=== PATIENT | male | born 1960 | race Caucasian/White ===

== ENCOUNTER → 2024-04-03 | Outpatient (CLI) | payer MEDICARE, BC, SELFPAY ==
[2024-04-03 13:04] LABS: Collection Type, Urine Clean Catch; Squamous Epithelial Cell,Urine 0 /hpf (0-5)
[2024-04-03 13:16] LABS: Bilirubin,Urine Negative (Negative); Blood,Urine Negative (Negative); Clarity,Urine Clear (Clear/Hazy); Color,Urine Lt-Yellow (Lt Yel-Yel); Glucose, Urine Negative (Negative); Ketones,Urine Negative (Negative); Leukocyte Esterase,Urine Negative (Negative); Nitrite,Urine Negative (Negative); Protein,Urine Negative (Neg - Trace); RBC,Urine 1 /hpf (0-3); Specific Gravity,Urine 1.009 (1.001-1.035); Urobilinogen,Urine Negative mg/dL (0.0-1.0); WBC,Urine 1 /hpf (0-5)
[2024-04-03 13:19] LABS: Basophils # (Auto) 0.1 Thou/mm3 (0.0-0.2); Basophils % (Auto) 1 % (0-2.5); Eosinophils # (Auto) 0.3 Thou/mm3 (0.0-0.5); Eosinophils % (Auto) 5 % (0-10); Hematocrit 31.8 % (41.0-53.0); Hemoglobin 10.8 g/dL (13.5-16.0); Immature Granulocytes % (Auto) 0 % (0-0); Immature Granulocytes Auto 0.02 Thou/mm3 (0.00-0.00); Lymphocytes # (Auto) 1.9 Thou/mm3 (1.0-4.8); Lymphocytes % (Auto) 27 % (10-50); Mean Corpuscular Hemoglobin 29.3 pg (25.0-35.0); Mean Corpuscular Volume 86 fL (80-100); Monocytes # (Auto) 0.7 Thou/mm3 (0.0-0.8); Monocytes % (Auto) 10 % (0-12); Neutrophils # (Auto) 4.2 Thou/mm3 (1.8-7.7); Neutrophils % (Auto) 58 % (37-80); Nucleated Red Blood Cell % 0 /100 WBC (0); RDW Standard Deviation 49.8 fL (35.1-43.9); Red Blood Count 3.69 Miln/mm3 (4.50-5.90); White Blood Count 7.2 Thou/mm3 (3.8-10.6)
[2024-04-03 13:31] LABS: Parathyroid Hormone Intact 76.4 pg/ml (18.5-88.0)
[2024-04-03 13:35] LABS: Creatinine MALB Rnd Ur 68 mg/dL (30-125); Microalbumin, Random Urine < 3 mg/L (0-300)
[2024-04-03 13:36] LABS: Alanine Aminotransferase 12 U/L (10-49); Albumin, Serum 4.5 gm/dL (3.4-4.8); Albumin/Globulin Ratio 1.9 (1.2-2.2); Alkaline Phosphatase 87 U/L (46-116); Anion Gap 9 (7-16); Aspartate Amino Transferase 17 U/L (0-34); BUN/Creatinine Ratio 13 Ratio (12-20); Bilirubin,Total 0.7 mg/dL (0.3-1.2); Blood Urea Nitrogen 18 mg/dL (9-23); Calcium 9.1 mg/dL (8.3-10.6); Calcium (Corrected) 9.1 mg/dL (8.5-10.1); Carbon Dioxide 22.7 mMol/L (20.0-31.0); Chloride 104 mMol/L (98-107); Creatinine (Component) 1.4 mg/dL (0.6-1.3); Globulin 2.4 gm/dL (2.3-3.5); Glucose 116 mg/dL (74-106); Osmolality,Calculated 274 (275-295); Potassium 4.2 mMol/L (3.4-5.1); Sodium 136 mMol/L (136-145); Thyroid Stimulating Hormone 2.78 uIU/mL (0.55-4.78); Total Protein 6.9 gm/dL (5.7-8.2); eGFR 56 See Note
[2024-04-03 13:42] LABS: Platelet Count 69 Thou/mm3 (140-440)
[2024-04-03 13:45] LABS: Glucose Estimated Average 108 mg/dL (80-131); Hemoglobin A1C 5.4 % Hgb (4.8-6.0)
[2024-04-03 13:46] LABS: Slide Review Platelets confirmed
== END | disposition home or self-care (01) ==
LOC: COPL 11:42
PROVIDERS: PCP Internal Medicine; Referring Provider Internal Medicine Hematology & Oncology; Visit Provider Internal Medicine Hematology & Oncology
DX: I12.9 Hypertensive chronic kidney disease with stage 1 through stage 4 chronic kidney disease, or unspecified chronic kidney disease (principal); N18.30 Chronic kidney disease, stage 3 unspecified; C7A.8 Other malignant neuroendocrine tumors; D37.6 Neoplasm of uncertain behavior of liver, gallbladder and bile ducts
CPT/HCPCS: 36415; 80053; 81001; 82043; 82570; 83036; 83970; 84443; 85025

== ENCOUNTER 2024-04-06 10:37 | Outpatient (RCR) | payer MEDICARE, BC, SELFPAY ==
--- NOTE | 2024-04-07 05:51 | CTCFLWUP_ITS ---
Patient: ALEXIA HOLDEN : 1960 Page 7 of 7 FOLLOW UP NOTE DATE OF SERVICE: 04/06/2024 NAME: ALEXIA HOLDEN ACCOUNT: : 1960 AGE: 64 DIAGNOSIS: Well-differentiated neuroendocrine tumor, grade 1?2involving liver parenchyma. Most likel y pancreatic neuroendocrine tumor. Mr. Holden received first dose of lanreotide 120 mg subcu on 12/26/2023. Multiple liver tumors (03/15/2023) Mr. Holden had DOTA scan (09/05/2023) at [facility] which showed multiple hepatic lesions as well as lesion i n the pancreas and splenic lesions suspicious for diffuse disease. 5 HIAA?urine 4.6 (less than 6.0 mg per 24-hour urine) 09/24/2023 5 HIAA?urine 2.8 (less than 6.0 mg per 24-hour urine) 05/27/2023. Hypertension currently being managed by Dr. Larry Byrnes Dry cough most likely secondary to lisinopril. Pulmonary emboli (09/05/2023) on apixaban. Thrombocytopenia most likely secondary to ITP REASON FOR TODAY?S VISIT: This is office follow-up visit. Mr. Holden is here at [facility], [place] accompanied by his . Mr. Holden had first dose of lanreotide on 12/26/2023. F or 3 days he had significant abdominal pain as well as diarrhea. The symptoms were resolved after th at. He is clinically doing well today. He rhad MRI scans of the abdomen which showed progression wh en it was compared to the previous MRI scans done in February 2023. CT scan of the chest with contra st did not show any residual pulmonary emboli. Currently Mr. Holden is on Eliquis. Tolerating it marlen y well. HISTORY OF PRESENT ILLNESS: Mr. Holden is a 64-year-old male with the following oncology his tory. 02/06/2023: Mr. Holden had a renal and bladder ultrasound to evaluate the cause for renal insufficienc y. 02/11/2023: CT scan of the abdomen without IV contrast 03/15/2023: MRI of the abdomen with and without contrast? 04/16/2023: CT-guided biopsy of the right lobe liver lesion? 05/27/2023: 24-hour urine 5-HIAA level 07/25/2023: PET/CT scan at [facility] 07/04/2023: EGD done Mr. Holden also had colonoscopy done which did not reveal any significant abnormalities. 09/05/2023: Dotatate PET CT scan at [facility]? 11/27/2023: Dr. Samantha Odonnell of [facility] gastrointestinal medical oncology recommended Mr. Holden to be started on lanreotide in view of the bulky disease. 12/26/2023: Mr. Holden received first dose of lanreotide 120 mg subcu. 01/23/2024: MRI of the abdomen with and without contrast PAST MEDICAL HISTORY: HTN Leaking mitral valve Neuroendocrine tumor liver - dx 04/16/23 ARF PAST SURGICAL HISTORY: Back surgery - 2000 - Detached left retina - 2 yrs ago Bilateral cataract surgery MEDICATIONS: 1. apixaban - 5 mg 1 tab one tab po twice a day 2. labetalol - 100 mg 1 tab Twice a Day 3. niCARdipine - 20 mg 1 Capsule Daily 4. TylenoL - 500 mg 1 tab Three times a day Medications Last Reconciled by Karina Garcia MA on 01/29/2024 ALLERGIES: Penicillins; naproxen REVIEW OF SYSTEMS: Neurological: No headache, seizures or blurring of vision. Gastrointestinal: No nausea, vomiting, diarrhea or constipation. Cardiovascular: No palpitations or angina pains. Respiratory: No cough, chest pain or shortness of breath. PHYSICAL EXAMINATION: VITAL SIGNS: Temperature?99.3, B/P?124/85, Oxygen?Saturation?96% Weight?190?lbs PAIN: 0 - No pain EYE: Conjunctivae is pink. MOUTH: Oral cavity is dry. CHEST: Clear to auscultation. No wheezes or rales audible. CARDIAC: Rhythm regular, no murmurs or gallops present. ABDOMEN: Soft. No hepatosplenomegaly. EXTREMITIES: No pedal edema or cyanosis. LABORATORY DATA: Date 04/03/2024 Time 12:13 PM 1:02 PM ??WHITE BLOOD COUNT (Thou/mm3) [C] 7.2 ? ??RED BLOOD COUNT (Miln/mm3) [C] 3.69 L ? ??HEMOGLOBIN (gm/dl) [C] 10.8 L ? ??HEMATOCRIT (%) [C] 31.8 L ? ??MCV (MEAN CORPUSCULAR VOL) (fl) [C] 86 ? ??MCH (MEAN CORPUSCULAR HGB) (pg) [C] 29.3 ? ??MCHC (MEAN CORPSCULR HGB CONC) (gm/dl) [C] 34.0 ? ??RDW (RBC DISTRIBUTION WDTH) SD (fl) [C] 49.8 H ? ??PLATELET COUNT (Thou/mm3) [C] 69 L ? ??NEUTROPHILS %, AUTO (%) [C] 58 ? ??LYMPH %, AUTO (%) [C] 27 ? ??MONO %, AUTO (%) [C] 10 ? ??EOS %, AUTO (%) [C] 5 ? ??BASO %, AUTO (%) [C] 1 ? ??NUCLEATED RBC % (/100 WBC) [C] 0 ? ??NEUTROPHILS, AUTO (Thou/mm3) [C] 4.2 ? ??LYMPH, AUTO (Thou/mm3) [C] 1.9 ? ??MONO, AUTO (Thou/mm3) [C] 0.7 ? ??EOS, AUTO (Thou/mm3) [C] 0.3 ? ??BASO, AUTO (Thou/mm3) [C] 0.1 ? ??NUCLEATED RBC # (Thou/mm3) [C] 0.00 ? ??IMMATURE GRANULOCYTES % AUTO (%) [C] 0 ? ??IMMATURE GRANULOCYTES, AUTO (Thou/mm3) [C] 0.02 H ? ??GLUCOSE,RANDOM (mg/dL) 116 H ? ??BLOOD UREA NITROGEN (mg/dL) 18 ? ??CREATININE (mg/dL) 1.40 H ? ??SODIUM (mmol/L) 136 ? ??POTASSIUM (mmol/L) 4.2 ? ??CHLORIDE (mmol/L) 104 ? ??CO2 (CARBON DIOXIDE) (mmol/L) 22.7 ? ??ANION GAP (mmol/L) 9 ? ??OSMOLALITY, CALC 274 L ? ??BUN/CREATININE RATIO (Ratio) 13 ? ??CrCl (CandG) (ml/min) 54.38 ? ??AST/SGOT (Unit/L) 17 ? ??ALT/SGPT (Unit/L) 12 ? ??ALKALINE PHOSPHATASE (Unit/L) 87 ? ??BILIRUBIN, TOTAL (mg/dL) 0.7 ? ??PROTEIN TOTAL (gm/dl) 6.9 ? ??ALBUMIN, SERUM (gm/dl) 4.5 ? ??GLOBULIN (gm/dl) 2.4 ? ??ALBUMIN/GLOBULIN RATIO 1.9 ? ??CALCIUM, SERUM (mg/dL) 9.1 ? ??CALCIUM SERUM (CORRECTED) (mg/dL) 9.1 ? Other Labs ?CrCl (J) (ml/min) 44.3 ? ??SLIDE REVIEW (Thou/mm3) Platelets confirmed ? ??COLLECTION TYPE, URINE ? Clean Catch ??TSH (THYROID STIM HORMONE) (uIU/mL) 2.78 ? ??MICROALBUMIN RND UR (mg/L) ? < 3 ??CREATININE MALB RND UR (mg/dL) ? 68 ??MICROALBUMIN CREAT RATIO (mg/gCrea) ?GLYCOHEMOGLOBIN HA1C (O*) (% Hgb) 5.4 ? ??GLUCOSE ESTIMATED AVERAGE (mg/dL) 108 ? ??PTH INTACT (pg/ml) 76.4 ? ??COLOR, URINE ? Lt-Yellow ??BILIRUBIN, URINE ? Negative ??KETONE, URINE ? Negative ??BLOOD, URINE ? Negative ??PH, URINE ? 6.0 ??PROTEIN, URINE ? Negative ??NITRITE, URINE ? Negative ??WBC, URINE (/hpf) ? 1 ??RBC, URINE (/hpf) ? 1 ??Clarity,Urine ? Clear ??Glucose, Urine ? Negative ??Specific Taylor,Urine ? 1.009 ??Leukocyte Esterase,Urine ? Negative ??Squamous Epithelial Cell,Urine (/hpf) ? 0 ??Bacteria,Urine ? None ??eGFR (See Note) 56 L ? ??Urobilinogen,Urine (mg/dL) ? Negative ASSESSMENT: 1. Well-differentiated neuroendocrine tumor, grade 1?2 involving liver parenchyma with possible pancr eatic primary. Multiple liver tumors (03/15/2023) 5 HIAA?urine 2.8 (less than 6.0 mg per 24-hour urine) The patient had first dose of lanreotide 120 mg subcu on 12/26/2023. For about 3 days he had signific ant abdominal pain as well as diarrhea. Dose will be reduced to 75 A recent MRI of the abdomen done on 01/23/2024 showed progression of the liver lesions when it was com pared to previous MRI done on March 15, 2023. 5 HIAA levels normal 09/24/2023 was 4.6 (less than 6.0) 2. Embolism -dotatate PET CT scan done on 09/05/2023 showed multiple hepatic metastasis and a possible lesion in the tail of the pancreas as documented above. 3. Dotatate PET scan also showed pulmonary emboli. Currently the patient is on apixaban. 4. Hypertension 5. 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 PLAN: Dose of lanreotide to be reduced to 75. Mr. Holden will talk to his neuroendocrine physician at [facility] and let us know in 1 week. Advised to do labs Ordered PET dotatate scan His platelets are 65 so can get an IM injection continue apixaban 5 mg p.o. twice daily. Patient advised to follow-up with [facility] instructions and advise me if there is any changes in his chi tment options recommended Electronically signed by Dr. Alexandra CC: Chelsi?John,? PCP: Sacha Brasher Referring: Dhaval Sam This document was completed utilizing speech recognition software. Grammatical errors, random word in sertions, pronoun errors, and incomplete sentences are an occasional consequence of this system due t o software limitations, ambient noise, and hardware issues. Any formal questions or concerns about th e content, text or information contained within the body of this dictation should be directly address ed to the provider for clarification.
== END 2024-04-28 23:59 | disposition home or self-care (01) ==
LOC: SCTC 10:37
PROVIDERS: PCP Internal Medicine; Referring Provider Internal Medicine; Visit Provider Internal Medicine Hematology & Oncology
DX: C7A.8 Other malignant neuroendocrine tumors (principal); I26.99 Other pulmonary embolism without acute cor pulmonale; I10 Essential (primary) hypertension; D69.6 Thrombocytopenia, unspecified
CPT/HCPCS: 99212; G0463

== ENCOUNTER → 2024-04-08 | Outpatient (CLI) | payer MEDICARE, BC, SELFPAY ==
[2024-04-08 09:31] LABS: Misc Send Out* See Sep Rpt
== END | disposition home or self-care (01) ==
LOC: SCTO 09:15 → SLDO 09:16
PROVIDERS: Referring Provider Internal Medicine Hematology & Oncology; Visit Provider Internal Medicine Hematology & Oncology
DX: C7B.02 Secondary carcinoid tumors of liver (principal)
CPT/HCPCS: 83497

== ENCOUNTER → 2024-04-09 | Outpatient (CLI) | payer MEDICARE, BC, SELFPAY ==
[2024-04-09 13:26] LABS: Basophils # (Auto) 0.1 Thou/mm3 (0.0-0.2); Basophils % (Auto) 1 % (0-2.5); Eosinophils # (Auto) 0.3 Thou/mm3 (0.0-0.5); Eosinophils % (Auto) 5 % (0-10); Hematocrit 32.6 % (41.0-53.0); Hemoglobin 11.1 g/dL (13.5-16.0); Immature Granulocytes % (Auto) 0 % (0-0); Immature Granulocytes Auto 0.02 Thou/mm3 (0.00-0.00); Lymphocytes # (Auto) 1.8 Thou/mm3 (1.0-4.8); Lymphocytes % (Auto) 24 % (10-50); Mean Corpuscular Hemoglobin 29.1 pg (25.0-35.0); Mean Corpuscular Volume 86 fL (80-100); Monocytes # (Auto) 0.8 Thou/mm3 (0.0-0.8); Monocytes % (Auto) 11 % (0-12); Neutrophils # (Auto) 4.4 Thou/mm3 (1.8-7.7); Neutrophils % (Auto) 59 % (37-80); Nucleated Red Blood Cell % 0 /100 WBC (0); RDW Standard Deviation 49.4 fL (35.1-43.9); Red Blood Count 3.81 Miln/mm3 (4.50-5.90); White Blood Count 7.4 Thou/mm3 (3.8-10.6)
[2024-04-09 13:45] LABS: Alanine Aminotransferase 12 U/L (10-49); Albumin, Serum 4.7 gm/dL (3.4-4.8); Alkaline Phosphatase 88 U/L (46-116); Anion Gap 7 (7-16); Aspartate Amino Transferase 13 U/L (0-34); BUN/Creatinine Ratio 16 Ratio (12-20); Bilirubin,Total 0.8 mg/dL (0.3-1.2); Blood Urea Nitrogen 22 mg/dL (9-23); Calcium 9.3 mg/dL (8.3-10.6); Calcium (Corrected) 9.3 mg/dL (8.5-10.1); Carbon Dioxide 23.4 mMol/L (20.0-31.0); Chloride 106 mMol/L (98-107); Creatinine (Component) 1.4 mg/dL (0.6-1.3); Globulin 2.3 gm/dL (2.3-3.5); Glucose 116 mg/dL (74-106); Osmolality,Calculated 276 (275-295); Potassium 4.1 mMol/L (3.4-5.1); Sodium 136 mMol/L (136-145); eGFR 56 See Note
[2024-04-09 13:48] LABS: Platelet Count 72 Thou/mm3 (140-440)
[2024-04-09 13:49] LABS: Slide Review Platelets confirmed
== END | disposition home or self-care (01) ==
LOC: SCTO 12:12
PROVIDERS: PCP Internal Medicine; Referring Provider Internal Medicine Hematology & Oncology; Visit Provider Internal Medicine Hematology & Oncology
DX: C7B.02 Secondary carcinoid tumors of liver (principal)
CPT/HCPCS: 36415; 80053; 85025

== ENCOUNTER → 2024-05-20 | Outpatient (CLI) | payer MEDICARE, BC, SELFPAY ==
[2024-05-20 14:09] LABS: Basophils % (Auto) 0 % (0-2.5); Eosinophils # (Auto) 0.3 Thou/mm3 (0.0-0.5); Eosinophils % (Auto) 4 % (0-10); Hematocrit 34.4 % (41.0-53.0); Hemoglobin 11.4 g/dL (13.5-16.0); Immature Granulocytes % (Auto) 0 % (0-0); Immature Granulocytes Auto 0.03 Thou/mm3 (0.00-0.00); Lymphocytes # (Auto) 2.1 Thou/mm3 (1.0-4.8); Lymphocytes % (Auto) 30 % (10-50); Mean Corpuscular HGB Conc 33.1 g/dl (31.0-37.0); Mean Corpuscular Hemoglobin 28.6 pg (25.0-35.0); Mean Corpuscular Volume 86 fL (80-100); Monocytes # (Auto) 0.7 Thou/mm3 (0.0-0.8); Monocytes % (Auto) 10 % (0-12); Neutrophils # (Auto) 3.9 Thou/mm3 (1.8-7.7); Neutrophils % (Auto) 55 % (37-80); Nucleated Red Blood Cell % 0 /100 WBC (0); RDW Standard Deviation 46.5 fL (35.1-43.9); Red Blood Count 3.99 Miln/mm3 (4.50-5.90)
[2024-05-20 14:10] LABS: Platelet Count 79 Thou/mm3 (140-440)
[2024-05-20 14:12] LABS: Alanine Aminotransferase 18 U/L (10-49); Albumin, Serum 4.3 gm/dL (3.4-4.8); Albumin/Globulin Ratio 1.7 (1.2-2.2); Alkaline Phosphatase 68 U/L (46-116); Anion Gap 11 (7-16); Aspartate Amino Transferase 23 U/L (0-34); BUN/Creatinine Ratio 12 Ratio (12-20); Bilirubin,Total 0.4 mg/dL (0.3-1.2); Blood Urea Nitrogen 18 mg/dL (9-23); Carbon Dioxide 26.4 mMol/L (20.0-31.0); Chloride 102 mMol/L (98-107); Creatinine (Component) 1.5 mg/dL (0.6-1.3); Globulin 2.5 gm/dL (2.3-3.5); Glucose 106 mg/dL (74-106); Osmolality,Calculated 279 (275-295); Potassium 4.4 mMol/L (3.4-5.1); Sodium 139 mMol/L (136-145); Total Protein 6.8 gm/dL (5.7-8.2); eGFR 51 See Note
[2024-05-20 15:48] LABS: Slide Review Platelets confirmed
== END | disposition home or self-care (01) ==
LOC: SCTO 12:35
PROVIDERS: PCP Internal Medicine; Referring Provider Internal Medicine Hematology & Oncology; Visit Provider Internal Medicine Hematology & Oncology
DX: C7B.02 Secondary carcinoid tumors of liver (principal)
CPT/HCPCS: 36415; 80053; 85025

== ENCOUNTER 2024-05-21 08:19 | Outpatient (RCR) | payer MEDICARE, BC, SELFPAY ==
--- NOTE | 2024-05-12 16:42 | CTCFLWUP_ITS ---
Patient: ALEXIA HOLDEN : 1960 Page 2 of 2 FOLLOW UP NOTE DATE OF SERVICE: 05/12/2024 NAME: ALEXIA HOLDEN ACCOUNT: [id number] : 1960 AGE: 64 INTERVAL HISTORY: Patient is doing well as per and him. Patient is been trying to eat only vegetarian food which is makes it hard for him to eat. Patient had change of insurance so has not been able to get his randolph reotide. Patient also was unable to do his PET CT scan. 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 Holden is a 64-year-old male with the following oncology history. 02/06/2023: Mr. Holden had a renal and bladder ultrasound to evaluate the cause for renal insufficienc y. 02/11/2023: CT scan of the abdomen without IV contrast 03/15/2023: MRI of the abdomen with and without contrast? 04/16/2023: CT-guided biopsy of the right lobe liver lesion? 05/27/2023: 24-hour urine 5-HIAA level 07/25/2023: PET/CT scan at [facility] 07/04/2023: EGD done Mr. Holden also had colonoscopy done which did not reveal any significant abnormalities. 09/05/2023: Dotatate PET CT scan at [facility]? 11/27/2023: Dr. Samantha Odonnell of [facility] gastrointestinal medical oncology recommended Mr. Holden to be started on lanreotide in view of the bulky disease. 12/26/2023: Mr. Holden received first dose of lanreotide 120 mg subcu. 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 Tobacco?Use:?Denies ETOH?Use:?Denies Drug?Note:?Denies Social?History?Note:?Lives?with? MEDICATIONS: 1. apixaban - 5 mg 1 tab one tab po twice a day 2. labetalol - 100 mg 1 tab Twice a Day 3. losartan - 100 mg 1 tab Daily 4. niCARdipine - 20 mg 1 Capsule Twice a Day 5. TylenoL - 500 mg 1 tab Three times a day Medications Last Reconciled by Aurora Berg MA on 05/12/2024 ALLERGIES: Penicillins; naproxen REVIEW OF SYSTEMS: A complete 14-point review of systems was performed and is negative except as noted in interval histo ry. PHYSICAL EXAMINATION: VITAL SIGNS: Temperature?100.4, B/P?96/70, Oxygen?Saturation?97% Weight?169?lbs PAIN: 0 - No pain ECOG Performance Status: 2 - Symptomatic; ambulatory; capable of self-care; >50% of waking hrs. not i n bed EYE: Conjunctivae is pink. MOUTH: Oral cavity is dry. CHEST: Clear to auscultation. No wheezes or rales audible. CARDIAC: Rhythm regular, no murmurs or gallops present. ABDOMEN: Soft. No hepatosplenomegaly. EXTREMITIES: No pedal edema or cyanosis. LABORATORY DATA: I have personally reviewed and interpreted each of the patient?s relevant lab tests, abnormal finding s are below: Date 04/09/24 ??GLUCOSE,RANDOM?(mg/dL) 116?H ??BLOOD?UREA?NITROGEN?(mg/dL) 22 ??CREATININE?(mg/dL) 1.40?H ??SODIUM?(mmol/L) 136 ??POTASSIUM?(mmol/L) 4.1 ??CHLORIDE?(mmol/L) 106 ??CrCl?(CandG)?(ml/min) 61.76 ??AST/SGOT?(Unit/L) 13 ??ALT/SGPT?(Unit/L) 12 ??ALKALINE?PHOSPHATASE?(Unit/L) 88 ??BILIRUBIN,?TOTAL?(mg/dL) 0.8 ??PROTEIN?TOTAL?(gm/dl) 7.0 ??ALBUMIN,?SERUM?(gm/dl) 4.7 ??GLOBULIN?(gm/dl) 2.3 ??ALBUMIN/GLOBULIN?RATIO 2.0 ??CALCIUM,?SERUM?(mg/dL) 9.3 ??CALCIUM?SERUM?(CORRECTED)?(mg/dL) 9.3 ASSESSMENT/PLAN: 1. Well-differentiated neuroendocrine tumor, grade 1?2 involving liver parenchyma with possible pancr eatic primary. Multiple liver tumors (03/15/2023) 5 HIAA?urine normal The patient had first dose of lanreotide 120 mg subcu on 12/26/2023. For about 3 days he had significant abdominal pain as well as diarrhea. Dose will be reduced to 75 A recent MRI of the abdomen done on 01/23/2024 showed progression of the liver lesions when it was com pared to previous MRI done on March 15, 2023. 5 HIAA levels normal 09/24/2023 was 4.6 (less than 6.0) 2. Embolism -dotatate PET CT scan done on 09/05/2023 showed multiple hepatic metastasis and a possible lesion in the tail of the pancreas as documented above. Repeat scan is still pending. I may treat p atient with chemotherapy if he has more lesions still on lanreotide and is not responding. 3. Dotatate PET scan also showed pulmonary emboli. Currently the patient is on apixaban. 4. Hypertension 5. 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 ORDERS: Return with with the PET CT scan results as well as labs Proceed with lanreotide 75 mg RETURN TO CLINIC: 4 weeks BILLING AND COMPLIANCE: I reviewed external records from providers outside my specialty as summarized above. I spent a total of 50 minutes on this patient?s care on the day of their visit excluding time spent related to any bi lled procedures. This time includes time spent with the patient as well as time spent documenting in the medical record, reviewing patients records and tests, obtaining history, placing orders, communi cating with other healthcare professionals, counseling the patient, family or caregiver, and/or care coordination for the diagnoses above. Electronically Signed by: Miguel Alexandra MD T: 4:39 PM CC: Chelsi?John,? PCP: Sacha Brasher Referring: Sacha Brasher This document was completed utilizing speech recognition software. Grammatical errors, random word in sertions, pronoun errors, and incomplete sentences are an occasional consequence of this system due t o software limitations, ambient noise, and hardware issues. Any formal questions or concerns about th e content, text or information contained within the body of this dictation should be directly address ed to the provider for clarification.
== END 2024-05-29 23:59 | disposition home or self-care (01) ==
LOC: SCTC 08:19
PROVIDERS: PCP Internal Medicine; Referring Provider Internal Medicine; Visit Provider Internal Medicine Hematology & Oncology
DX: C7A.8 Other malignant neuroendocrine tumors (principal); I26.99 Other pulmonary embolism without acute cor pulmonale; I10 Essential (primary) hypertension; D69.6 Thrombocytopenia, unspecified; Z79.01 Long term (current) use of anticoagulants
CPT/HCPCS: 96372; 99212; J1932; G0463

== ENCOUNTER → 2024-06-11 | Outpatient (CLI) | payer MEDICARE, BC, SELFPAY ==
[2024-06-11 17:43] LABS: Basophils # (Auto) 0.1 Thou/mm3 (0.0-0.2); Basophils % (Auto) 1 % (0-2.5); Eosinophils # (Auto) 0.4 Thou/mm3 (0.0-0.5); Eosinophils % (Auto) 5 % (0-10); Hematocrit 29.5 % (41.0-53.0); Hemoglobin 10.1 g/dL (13.5-16.0); Immature Granulocytes % (Auto) 0 % (0-0); Immature Granulocytes Auto 0.02 Thou/mm3 (0.00-0.00); Lymphocytes # (Auto) 2.3 Thou/mm3 (1.0-4.8); Lymphocytes % (Auto) 27 % (10-50); Mean Corpuscular HGB Conc 34.2 g/dl (31.0-37.0); Mean Corpuscular Volume 85 fL (80-100); Monocytes % (Auto) 12 % (0-12); Neutrophils # (Auto) 4.8 Thou/mm3 (1.8-7.7); Neutrophils % (Auto) 56 % (37-80); Nucleated Red Blood Cell % 0 /100 WBC (0); RDW Standard Deviation 49.3 fL (35.1-43.9); Red Blood Count 3.48 Miln/mm3 (4.50-5.90); White Blood Count 8.5 Thou/mm3 (3.8-10.6)
[2024-06-11 17:50] LABS: Platelet Count 53 Thou/mm3 (140-440)
[2024-06-11 18:13] LABS: Alanine Aminotransferase < 7 U/L (10-49); Albumin, Serum 3.9 gm/dL (3.4-4.8); Albumin/Globulin Ratio 1.7 (1.2-2.2); Alkaline Phosphatase 69 U/L (46-116); Anion Gap 9 (7-16); Aspartate Amino Transferase 11 U/L (0-34); BUN/Creatinine Ratio 11 Ratio (12-20); Bilirubin,Total 0.9 mg/dL (0.3-1.2); Blood Urea Nitrogen 16 mg/dL (9-23); Calcium 8.7 mg/dL (8.3-10.6); Calcium (Corrected) 8.8 mg/dL (8.5-10.1); Carbon Dioxide 25.9 mMol/L (20.0-31.0); Chloride 104 mMol/L (98-107); Creatinine (Component) 1.4 mg/dL (0.6-1.3); Globulin 2.3 gm/dL (2.3-3.5); Glucose 108 mg/dL (74-106); Osmolality,Calculated 279 (275-295); Potassium 3.5 mMol/L (3.4-5.1); Sodium 139 mMol/L (136-145); Total Protein 6.2 gm/dL (5.7-8.2); eGFR 56 See Note
[2024-06-11 18:51] LABS: Slide Review Platelets confirmed
== END | disposition home or self-care (01) ==
LOC: SCTO 16:45
PROVIDERS: PCP Internal Medicine; Referring Provider Internal Medicine Hematology & Oncology; Visit Provider Internal Medicine Hematology & Oncology
DX: C7B.02 Secondary carcinoid tumors of liver (principal)
CPT/HCPCS: 36415; 80053; 85025

== ENCOUNTER 2024-06-12 08:53 | Outpatient (RCR) | payer MEDICARE, BC, SELFPAY | END 2024-06-26 23:59 | disposition home or self-care (01) | LOC: SCTC 08:53 | PROVIDERS: PCP Internal Medicine; Referring Provider Internal Medicine; Visit Provider Internal Medicine Hematology & Oncology | DX: C7A.8 Other malignant neuroendocrine tumors (principal); I10 Essential (primary) hypertension; D69.6 Thrombocytopenia, unspecified | CPT/HCPCS: 96372; J1932 ==

== ENCOUNTER 2024-07-08 09:22 | Outpatient (RCR) | payer MEDICARE, BC, SELFPAY ==
--- NOTE | 2024-07-08 00:23 | CTCFLWUP_ITS ---
Patient: ALEXIA HOLDEN : 1960 Page 6 of 8 FOLLOW UP NOTE DATE OF SERVICE: 07/07/2024 NAME: ALEXIA HOLDEN ACCOUNT: [id number] : 1960 AGE: 64 INTERVAL HISTORY: Patient is doing well. He follows with [facility] along with the following here. Patient had PET dotatate scan. Patient also received his last octreotide. 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 Holden is a 64-year-old male with the following oncology history. 02/06/2023: Mr. Holden had a renal and bladder ultrasound to evaluate the cause for renal insufficiency. 02/11/2023: CT scan of the abdomen without IV contrast 03/15/2023: MRI of the abdomen with and without contrast? 04/16/2023: CT-guided biopsy of the right lobe liver lesion? 05/27/2023: 24-hour urine 5-HIAA level 07/25/2023: PET/CT scan at [facility] 07/04/2023: EGD done Mr. Holden also had colonoscopy done which did not reveal any significant abnormalities. 09/05/2023: Dotatate PET CT scan at [facility]? 11/27/2023: Dr. Samantha Odonnell of [facility] gastrointestinal medical oncology recommended Mr. Holden to be started on lanreotide in view of the bulky disease. 12/26/2023: Mr. Holden received first dose of lanreotide 120 mg subcu. 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 Tobacco?Use:?Denies ETOH?Use:?Denies Drug?Note:?Denies Social?History?Note:?Lives?with? MEDICATIONS: 1. Eliquis - 5 mg 1 tab 2. labetalol - 100 mg 1 tab Twice a Day 3. losartan - 100 mg 1 tab Daily 4. niCARdipine - 20 mg 1 Capsule Twice a Day 5. TylenoL - 500 mg 1 tab Three times a day Medications Last Reconciled by Karina Ivan MD on 07/07/2024 ALLERGIES: Penicillins; naproxen REVIEW OF SYSTEMS: A complete 14-point review of systems was performed and is negative except as noted in interval history. PHYSICAL EXAMINATION: VITAL SIGNS: Temperature?97.6, B/P?104/65, Oxygen?Saturation?96% Weight?173?lbs (Change?since?06/12/24:?1.2?lbs) PAIN: 0 - No pain ECOG Performance Status: 0 - Asymptomatic and fully active EYE: Conjunctivae is pink. MOUTH: Oral cavity is dry. CHEST: Clear to auscultation. No wheezes or rales audible. CARDIAC: Rhythm regular, no murmurs or gallops present. ABDOMEN: Soft. No hepatosplenomegaly. EXTREMITIES: No pedal edema or cyanosis. LABORATORY DATA: I have personally reviewed and interpreted each of the patient?s relevant lab tests, abnormal findings are below: Date 05/20/24 06/11/24 ??WHITE?BLOOD?COUNT?(Thou/mm3) 7.0 8.5 ??RED?BLOOD?COUNT?(Miln/mm3) 3.99?L 3.48?L ??HEMOGLOBIN?(gm/dl) 11.4?L 10.1?L ??HEMATOCRIT?(%) 34.4?L 29.5?L ??PLATELET?COUNT?(Thou/mm3) 79?L 53?L ??NEUTROPHILS?%,?AUTO?(%) 55 56 ??LYMPH?%,?AUTO?(%) 30 27 ??NEUTROPHILS,?AUTO?(Thou/mm3) 3.9 4.8 ??GLUCOSE,RANDOM?(mg/dL) 106 108?H ??BLOOD?UREA?NITROGEN?(mg/dL) 18 16 ??CREATININE?(mg/dL) 1.50?H 1.40?H ??SODIUM?(mmol/L) 139 139 ??POTASSIUM?(mmol/L) 4.4 3.5 ??CHLORIDE?(mmol/L) 102 104 ??CrCl?(CandG)?(ml/min) 53.23 58.99 ??AST/SGOT?(Unit/L) 23 11 ??ALT/SGPT?(Unit/L) 18 <?7?L ??ALKALINE?PHOSPHATASE?(Unit/L) 68 69 ??BILIRUBIN,?TOTAL?(mg/dL) 0.4 0.9 ??PROTEIN?TOTAL?(gm/dl) 6.8 6.2 ??ALBUMIN,?SERUM?(gm/dl) 4.3 3.9 ??GLOBULIN?(gm/dl) 2.5 2.3 ??ALBUMIN/GLOBULIN?RATIO 1.7 1.7 ??CALCIUM,?SERUM?(mg/dL) 9.0 8.7 ??CALCIUM?SERUM?(CORRECTED)?(mg/dL) 9.0 8.8 ASSESSMENT/PLAN: 1. Well-differentiated neuroendocrine tumor, grade 1?2 involving liver parenchyma with possible pancreatic primary. Multiple liver tumors (03/15/2023) 5 HIAA?urine have increased l The patient had first dose of lanreotide 120 mg subcu on 12/26/2023. For about 3 days he had significant abdominal pain as well as diarrhea. Dose will be reduced to 75 . he did not receive any treatment until 05/2024 and thus about 6 month break A recent MRI of the abdomen done on 01/23/2024 showed progression of the liver lesions when it was compared to previous MRI done on March 15, 2023. 5 HIAA levels normal 09/24/2023 was 4.6 (less than 6.0) PET CT scan with the dotatate on 07/01/2024 is showing progression or more brighter spots than earlier in August Of note patient has not received any treatment for about 6 months and likely reason that his cancer has progressed Plan is to continue octreotide and sent for possible intervention on his liver and pancreas Patient is following with [facility] today I will send patient to interventional radiology [place] if no surgery offered by his consulting physician Will continue octreotide at current dose #2 embolism -dotatate PET CT scan done on 09/05/2023 showed multiple hepatic metastasis and a possible lesion in the tail of the pancreas as documented above. Repeat scan is still pending. I may treat patient with chemotherapy if he has more lesions still on lanreotide and is not responding. Dotatate PET scan also showed pulmonary emboli. Currently the patient is on apixaban. 2. Hypertension 3. 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 ORDERS: Order # Description [id number] Urine 5 HIAA [id number] Chromogranin A [id number] Comprehensive Metabolic Panel - 12 + CBC with Auto Diff [id number] Urine 5 HIAA [id number] Follow Up 2 Months RETURN TO CLINIC: I will see him back in the clinic in 2 months. BILLING AND COMPLIANCE: I reviewed external records from providers outside my specialty as summarized above. I spent a total of 50 minutes on this patient?s care on the day of their visit excluding time spent related to any billed procedures. This time includes time spent with the patient as well as time spent documenting in the medical record, reviewing patients records and tests, obtaining history, placing orders, communicating with other healthcare professionals, counseling the patient, family or caregiver, and/or care coordination for the diagnoses above. Electronically Signed by: Miguel Alexandra MD T: 12:20 AM CC: Chelsi?John? PCP: Sacha Brasher Referring: Sacha Brasher This document was completed utilizing speech recognition software. Grammatical errors, random word insertions, pronoun errors, and incomplete sentences are an occasional consequence of this system due to software limitations, ambient noise, and hardware issues. Any formal questions or concerns about the content, text or information contained within the body of this dictation should be directly addressed to the provider for clarification.
== END 2024-07-27 23:59 | disposition home or self-care (01) ==
LOC: SCTC 09:22
PROVIDERS: PCP Internal Medicine; Referring Provider Internal Medicine; Visit Provider Internal Medicine Hematology & Oncology
DX: C7A.8 Other malignant neuroendocrine tumors (principal); I10 Essential (primary) hypertension; D69.6 Thrombocytopenia, unspecified
CPT/HCPCS: 96372; 99212; J1932; G0463

== ENCOUNTER 2024-08-17 10:31 | Outpatient (RCR) | payer MEDICARE, BC, SELFPAY | END 2024-08-26 23:59 | disposition home or self-care (01) | LOC: SCTC 10:31 | PROVIDERS: PCP Internal Medicine; Referring Provider Internal Medicine; Visit Provider Internal Medicine Hematology & Oncology | DX: C7A.8 Other malignant neuroendocrine tumors (principal); I26.99 Other pulmonary embolism without acute cor pulmonale; I10 Essential (primary) hypertension; D69.6 Thrombocytopenia, unspecified | CPT/HCPCS: 96372; J1932 ==

== ENCOUNTER 2024-09-09 09:24 | Outpatient (RCR) | payer MEDICARE, BC, SELFPAY ==
--- NOTE | 2024-09-09 13:05 | CTCFLWUP_ITS ---
Patient: BUD HOLDEN : 1960 Page 2 of 2 FOLLOW UP NOTE DATE OF SERVICE: 09/08/2024 NAME: BUD HOLDEN ACCOUNT: [id number] : 1960 AGE: 64 INTERVAL HISTORY: Subjective: Chief Complaint Follow-up for neuroendocrine cancer, recent episodes of dizziness due to low blood pressure, blood clots, low platelets History of Present Illness Bud is a patient with a history of pancreatic neuroendocrine tumor presenting for follow-up. He reports improvement in his overall health status since starting lanreotide, with increased appetite and feeling better overall. Previously, Bud experienced fatigue, tiredness, weight loss, and appetite changes after his cancer diagnosis. He was initially asymptomatic when the cancer was discovered incidentally during workup for low kidney function. An ultrasound revealed masses on his liver. In August of last year, Bud developed two blood clots following a DOTATATE scan in [place], for which he has been taking Eliquis 5 mg twice daily. Bud recently experienced a episode of extremely low blood pressure after his last cancer treatment with thalidomide, causing significant dizziness. This led to adjustments in his blood pressure medication. He reports feeling much better since stopping the blood pressure medication that was making him weak and dizzy. Bud also mentions a recent adverse reaction to lanreotide, experiencing severe diarrhea for 3 days after receiving a 120 mg dose. The dose has since been reduced to 75 mg, which he tolerates better. He continues to receive monthly lanreotide injections. Regarding his anticoagulation, Bud is currently taking Eliquis 5 mg twice daily. He has had persistently low platelet counts, which are being monitored. Bud denies any current symptoms of bleeding or clotting. Medications and Supplements - Thalidomide - Last cancer shot taken. Caused extremely low blood pressure and dizziness. - Lanreotide 75 mg - Injection monthly. - Reduced from 120 mg due to side effects. - Caused severe diarrhea for 3 days at higher dose. - Patient feels better since starting, with increased appetite. - Eliquis 5 mg - Taken twice daily. - For blood clots found last August. - Blood pressure medication - Discontinued due to causing low blood pressure and dizziness. - Hydrochlorothiazide - Discontinued. - B12 - Not currently taking. - Blood test in June showed very low levels. Review of Systems General: Positive for fatigue and weight loss. Negative for fever, chills, and muscle aches. Improved appetite. Cardiovascular: Positive for dizziness (resolved). Negative for chest pain. Gastrointestinal: Positive for diarrhea (resolved). Neurological: Positive for weakness (resolved). Objective: Vital Signs - Blood Pressure: 120/80 mmHg Laboratory, Imaging, and Diagnostic Test Results - Date: June 2024 - Serum Chromogranin A: 1499 ng/mL (normal <100 ng/mL) - Urine 5-HIAA: 9.2 mg/24hr (elevated) - B12: Low (specific value not provided) - Copper: Normal (specific value not provided) - Previous results: - Date: June 2023 - D-dimer: Elevated (specific value not provided) - B12: Very low (specific value not provided) - Urine 5-HIAA: Normal (specific value not provided) - DOTATATE scan (07/01/2024): Increased burden of radiotracer avid hepatic lesions compared to prior scan from August 2023. Punctate lesions in small loop in central abdomen (likely artifact). Splenic hilum lesion possibly representing tail pancreatic lesion/primary tumor. 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 Holden is a 64-year-old male with the following oncology history. 02/06/2023: Mr. Holden had a renal and bladder ultrasound to evaluate the cause for renal insufficiency. 02/11/2023: CT scan of the abdomen without IV contrast 03/15/2023: MRI of the abdomen with and without contrast? 04/16/2023: CT-guided biopsy of the right lobe liver lesion? 05/27/2023: 24-hour urine 5-HIAA level 07/25/2023: PET/CT scan at [facility] 07/04/2023: EGD done Mr. Holden also had colonoscopy done which did not reveal any significant abnormalities. 09/05/2023: Dotatate PET CT scan at [facility]? 11/27/2023: Dr. Samantha Odonnell of [facility] gastrointestinal medical oncology recommended Mr. Holden to be started on lanreotide in view of the bulky disease. 12/26/2023: Mr. Holden received first dose of lanreotide 120 mg subcu. 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 Tobacco?Use:?Denies ETOH?Use:?Denies Drug?Note:?Denies Social?History?Note:?Lives?with? MEDICATIONS: 1. Eliquis - 5 mg 1 tab 2. labetalol - 100 mg 1 tab Twice a Day 3. losartan - 50 mg 1 tab Daily 4. TylenoL - 500 mg 1 tab Three times a day Medications Last Reconciled by Karina Garcia MA on 09/08/2024 ALLERGIES: Penicillins; naproxen REVIEW OF SYSTEMS: A complete 14-point review of systems was performed and is negative except as noted in interval history. PHYSICAL EXAMINATION: VITAL SIGNS: Temperature?99.9, B/P?167/103, Oxygen?Saturation?96% Weight?165?lbs (Change?since?08/17/24:?1.6?lbs) PAIN: 0 - No pain ECOG Performance Status: 0 - Asymptomatic and fully active EYE: Conjunctivae is pink. MOUTH: Oral cavity is dry. CHEST: Clear to auscultation. No wheezes or rales audible. CARDIAC: Rhythm regular, no murmurs or gallops present. ABDOMEN: Soft. No hepatosplenomegaly. EXTREMITIES: No pedal edema or cyanosis. LABORATORY DATA: I have personally reviewed and interpreted each of the patient?s relevant lab tests, abnormal findings are below: Date 05/20/24 06/11/24 ??WHITE?BLOOD?COUNT?(Thou/mm3) 7.0 8.5 ??RED?BLOOD?COUNT?(Miln/mm3) 3.99?L 3.48?L ??HEMOGLOBIN?(gm/dl) 11.4?L 10.1?L ??HEMATOCRIT?(%) 34.4?L 29.5?L ??PLATELET?COUNT?(Thou/mm3) 79?L 53?L ??NEUTROPHILS?%,?AUTO?(%) 55 56 ??LYMPH?%,?AUTO?(%) 30 27 ??NEUTROPHILS,?AUTO?(Thou/mm3) 3.9 4.8 ??GLUCOSE,RANDOM?(mg/dL) 106 108?H ??BLOOD?UREA?NITROGEN?(mg/dL) 18 16 ??CREATININE?(mg/dL) 1.50?H 1.40?H ??SODIUM?(mmol/L) 139 139 ??POTASSIUM?(mmol/L) 4.4 3.5 ??CHLORIDE?(mmol/L) 102 104 ??CrCl?(CandG)?(ml/min) 53.23 58.99 ??AST/SGOT?(Unit/L) 23 11 ??ALT/SGPT?(Unit/L) 18 <?7?L ??ALKALINE?PHOSPHATASE?(Unit/L) 68 69 ??BILIRUBIN,?TOTAL?(mg/dL) 0.4 0.9 ??PROTEIN?TOTAL?(gm/dl) 6.8 6.2 ??ALBUMIN,?SERUM?(gm/dl) 4.3 3.9 ??GLOBULIN?(gm/dl) 2.5 2.3 ??ALBUMIN/GLOBULIN?RATIO 1.7 1.7 ??CALCIUM,?SERUM?(mg/dL) 9.0 8.7 ??CALCIUM?SERUM?(CORRECTED)?(mg/dL) 9.0 8.8 ASSESSMENT/PLAN: ? Well-differentiated neuroendocrine tumor, grade 1?2 involving liver parenchyma with possible pancreatic primary. Assessment and Plan: Bud is a male patient with a history of neuroendocrine tumor, presenting for follow-up of cancer treatment and management of associated symptoms including blood pressure fluctuations and low platelet count. Multiple liver tumors (03/15/2023) 5 HIAA?urine have increased l The patient had first dose of lanreotide 120 mg subcu on 12/26/2023. For about 3 days he had significant abdominal pain as well as diarrhea. Dose will be reduced to 75 . he did not receive any treatment until 05/2024 and thus about 6 month break A recent MRI of the abdomen done on 01/23/2024 showed progression of the liver lesions when it was compared to previous MRI done on March 15, 2023. 5 HIAA levels normal 09/24/2023 was 4.6 (less than 6.0) PET CT scan with the dotatate on 07/01/2024 is showing progression or more brighter spots than earlier in August Of note patient has not received any treatment for about 6 months and likely reason that his cancer has progressed Plan is to continue octreotide and sent for possible intervention on his liver and pancreas Neuroendocrine tumor Assessment: Patient has a known neuroendocrine tumor, likely originating from the tail of the pancreas with multiple hepatic lesions. Recent dotatate scan in June showed increased burden of radiotracer avid hepatic lesions compared to the previous scan in August. The tumor is clinically non-functional. Serum chromogranin A level is significantly eleated at 1499 (normal <100), indicating active disease. The patient is currently on lanreotide 75 mg (reduced from 120 mg due to side effects) and reports feeling better with increased appetite since starting treatment. Plan: - Continue lanreotide 75 mg monthly injections - Repeat serum chromogranin A and random urine chromogranin A levels in 2-3 weeks to assess treatment response - Consider repeating imaging in 4 months as per [facility] recommendation - Monitor for symptoms related to disease progression or treatment side effects Thrombocytopenia Assessment: Patient has persistently low platelet count, possibly related to liver involvement from the neuroendocrine tumor. The exact cause is unclear, and further evaluation by a affirmative action officer has been recommended. Plan: - Refer to affirmative action officer for evaluation of thrombocytopenia - Monitor platelet count closely - Hold anticoagulation if platelet count drops below 50,000/?L Vitamin B12 deficiency Assessment: Patient has a documented low vitamin B12 level from June, which has not been addressed. Plan: - Initiate monthly vitamin B12 intramuscular injections - Administer B12 injection during monthly lanreotide visits Blood pressure fluctuations Assessment: Patient reports improvement in blood pressure and overall well-being since discontinuing previous antihypertensive medication that caused dizziness and weakness. Current blood pressure is noted to be high during the visit. Plan: - Recommend home blood pressure monitoring and maintenance of a blood pressure diary - Patient to bring blood pressure monitor and diary to future appointments - Avoid use of hydrochlorothiazide as per specialist recommendation - Monitor for symptoms related to blood pressure fluctuations #2 embolism -dotatate PET CT scan done on 09/05/2023 showed multiple hepatic metastasis and a possible lesion in the tail of the pancreas as documented above. Repeat scan is still pending. I may treat patient with chemotherapy if he has more lesions still on lanreotide and is not responding. Dotatate PET scan also showed pulmonary emboli. Currently the patient is on apixaban. ? Hypertension ? 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 ? History of venous thromboembolism ? Assessment: Patient has a history of blood clots discovered in August of the previous year after a DOTATATE scan. He has been on Eliquis 5 mg twice daily for approximately one year. ? Plan: ? - Reduce Eliquis dose to 2.5 mg twice daily due to low platelet count ? - Continue to monitor for signs of bleeding or recurrent thrombosis ORDERS: Order # Description [id number] CBC + Comprehensive Metabolic Panel [id number] Lab Appointment [id number] CBC + Comprehensive Metabolic Panel [id number] Lab Appointment [id number] CBC + Comprehensive Metabolic Panel [id number] Lab Appointment [id number] CBC + Comprehensive Metabolic Panel [id number] Lab Appointment [id number] CBC + Comprehensive Metabolic Panel [id number] Lab Appointment [id number] CBC + Comprehensive Metabolic Panel [id number] Lab Appointment [id number] CBC + Comprehensive Metabolic Panel [id number] Lab Appointment [id number] CBC + Comprehensive Metabolic Panel [id number] Lab Appointment [id number] CBC + Comprehensive Metabolic Panel [id number] Lab Appointment [id number] CBC + Comprehensive Metabolic Panel [id number] Lab Appointment [id number] CBC + Comprehensive Metabolic Panel [id number] Lab Appointment [id number] CBC + Comprehensive Metabolic Panel [id number] Lab Appointment RETURN TO CLINIC: BILLING AND COMPLIANCE: I reviewed external records from providers outside my specialty as summarized above. I spent a total of 50 minutes on this patient?s care on the day of their visit excluding time spent related to any billed procedures. This time includes time spent with the patient as well as time spent documenting in the medical record, reviewing patients records and tests, obtaining history, placing orders, communicating with other healthcare professionals, counseling the patient, family or caregiver, and/or care coordination for the diagnoses above. Electronically Signed by: Miguel Alexandra MD T: 1:02 PM CC: Chelsi?John? PCP: Sacha Brasher Referring: Sameera, Nirupama This document was completed utilizing speech recognition software. Grammatical errors, random word insertions, pronoun errors, and incomplete sentences are an occasional consequence of this system due to software limitations, ambient noise, and hardware issues. Any formal questions or concerns about the content, text or information contained within the body of this dictation should be directly addressed to the provider for clarification.
== END 2024-09-26 23:59 | disposition home or self-care (01) ==
LOC: SCTC 09:24
PROVIDERS: PCP Internal Medicine; Referring Provider Internal Medicine; Visit Provider Internal Medicine Hematology & Oncology
DX: C7A.8 Other malignant neuroendocrine tumors (principal); D69.6 Thrombocytopenia, unspecified; E53.8 Deficiency of other specified B group vitamins; Z86.718 Personal history of other venous thrombosis and embolism; Z79.01 Long term (current) use of anticoagulants; I10 Essential (primary) hypertension
CPT/HCPCS: 96372; 99212; J1932; J3420; G0463

== ENCOUNTER 2024-10-07 08:23 | Outpatient (RCR) | payer MEDICARE, BC, SELFPAY | END 2024-10-26 23:59 | disposition home or self-care (01) | LOC: SCTC 08:23 | PROVIDERS: PCP Internal Medicine; Referring Provider Internal Medicine; Visit Provider Internal Medicine Hematology & Oncology | DX: Z51.11 Encounter for antineoplastic chemotherapy (principal); C7A.8 Other malignant neuroendocrine tumors; E53.8 Deficiency of other specified B group vitamins; D69.6 Thrombocytopenia, unspecified; Z86.718 Personal history of other venous thrombosis and embolism; Z79.01 Long term (current) use of anticoagulants; I95.9 Hypotension, unspecified | CPT/HCPCS: 36591; 96372; 96402; J1932; J3420 ==

== ENCOUNTER 2024-11-04 09:06 | Outpatient (RCR) | payer MEDICARE, BC, SELFPAY ==
--- NOTE | 2024-11-15 18:40 | CTCFLWUP_ITS ---
Patient: BUD HOLDEN : 1960 Page 7 of 11 FOLLOW UP NOTE DATE OF SERVICE: 10/27/2024 NAME: BDU HOLDEN ACCOUNT: [id number] : 1960 AGE: 64 INTERVAL HISTORY: Varun Coelho, a male with neuroendocrine tumor, presented with low platelet count (58 in May, recently ), elevated chromogranin A (increased from 1499 to 2335), constipation, and taste alterations. His medications include Helicase 2.5mg BID, octreotide injections, and monthly vitamin B12. Treatment plan includes starting Promacta for thrombocytopenia, increasing octreotide dose, ordering leg ultrasound for elevated D-dimer, adding sublingual B12, prescribing sodium citrate for constipation, and providing nutritional counseling with dietary modifications. Subjective: Chief Complaint Low platelet count, high chromogranin A level (cancer marker), constipation, problems eating, loss of sense of taste for sweetness and tartness History of Present Illness Varun Coelho presents for follow-up of his ongoing oncological care. He has been experiencing low platelet counts, with recent labs showing levels between 50-59, and the last lab in May at 58. The patient reports problems with eating, including severe constipation and loss of taste for sweetness and tartness. Mr. Coelho's cancer marker, Chromogranin A, has been increasing, rising from 1499 in August to 2335 recently, indicating that his current treatment may not be effective. He received his last octreotide shot on October 07. The patient has been adhering to his prescribed blood thinner regimen of 2.5 BID. The patient has been experiencing symptoms that may indicate a possible blood clot, with high D-dimer levels noted. He recently traveled, which may have contributed to this risk. To manage his health, Mr. Coelho has been making dietary changes, including cutting out carbohydrates and avoiding white flour due to concerns about developing diabetes, given his family history. Mr. Coelho continues to receive monthly B12 injections, which have led to some improvement in his numbers, rising from the fifties to the seventies. Despite this, his Vitamin B12 levels remain low. The patient reports that his blood pressure and cholesterol are well-controlled, with his primary care provider being satisfied with these numbers. Medications and Supplements - Helicase 2.5 BID - Blood thinner - Octreotide - Administered as a shot on October 07 - Vitamin B12 - Administered as a monthly injection - Has improved patient's numbers from fifties to seventies Review of Systems General: Positive for decreased appetite. HEENT: Positive for loss of taste sensation (sweetness and tartness). Gastrointestinal: Positive for constipation. Objective: Laboratory, Imaging, and Diagnostic Test Results - Date: May 2024 - Platelets: 58 - Date: August 2024 - Chromogranin A: 1499 - Date: September 2024 (recent) - Chromogranin A: 2335 - D-dimer: Elevated - Platelets: 73 - White blood cell count: Improved (specific value not provided) - Previous results: - Platelets: 50-59 (date not specified) ONCOLOGY HISTORY:?[facility] Hx? 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 Holden is a 64-year-old male with the following oncology history. 02/06/2023: Mr. Holden had a renal and bladder ultrasound to evaluate the cause for renal insufficiency. 02/11/2023: CT scan of the abdomen without IV contrast 03/15/2023: MRI of the abdomen with and without contrast? 04/16/2023: CT-guided biopsy of the right lobe liver lesion? 05/27/2023: 24-hour urine 5-HIAA level 07/25/2023: PET/CT scan at [facility] 07/04/2023: EGD done Mr. Holden also had colonoscopy done which did not reveal any significant abnormalities. 09/05/2023: Dotatate PET CT scan at [facility]? 11/27/2023: Dr. Samantha Odonnell of [facility] gastrointestinal medical oncology recommended Mr. Holden to be started on lanreotide in view of the bulky disease. 12/26/2023: Mr. Holden received first dose of lanreotide 120 mg subcu. 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 Tobacco?Use:?Denies ETOH?Use:?Denies Drug?Note:?Denies Social?History?Note:?Lives?with? MEDICATIONS: 1. Eliquis - 2.5 mg 1 tab twice a day 2. labetalol - 100 mg 1 tab Twice a Day 3. losartan - 50 mg 1 tab Daily 4. losartan - 100 mg 1 tab Twice a Day 5. sodium citrate - 4 gram /100 mL (4 %) 4 gm weekly if no bm for 7 days 6. TylenoL - 500 mg 1 tab Three times a day?[facility] Meds? Medications Last Reconciled by Aurora Berg MA on 10/27/2024 ALLERGIES: Penicillins; naproxen REVIEW OF SYSTEMS: A complete 14-point review of systems was performed and is negative except as noted in interval history. PHYSICAL EXAMINATION:?[facility] PE? VITAL SIGNS: Temperature?97.6, B/P?125/91, Oxygen?Saturation?96% Weight?160?lbs (Change?since?10/07/24:?-6.2?lbs) PAIN: 0 - No pain ECOG Performance Status: 1 - Symptomatic; ambulatory; restricted in strenuous activity EYE: Conjunctivae is pink. MOUTH: Oral cavity is dry. CHEST: Clear to auscultation. No wheezes or rales audible. CARDIAC: Rhythm regular, no murmurs or gallops present. ABDOMEN: Soft. No hepatosplenomegaly. EXTREMITIES: No pedal edema or cyanosis. LABORATORY DATA: I have personally reviewed and interpreted each of the patient?s relevant lab tests, abnormal findings are below: Date 06/11/24 11/12/24 ??WHITE?BLOOD?COUNT?(Thou/mm3) 8.5 8.5 ??RED?BLOOD?COUNT?(Miln/mm3) 3.48?L 3.62?L ??HEMOGLOBIN?(gm/dl) 10.1?L 10.7?L ??HEMATOCRIT?(%) 29.5?L 30.3?L ??PLATELET?COUNT?(Thou/mm3) 53?L 93?L ??NEUTROPHILS?%,?AUTO?(%) 56 51 ??LYMPH?%,?AUTO?(%) 27 31 ??NEUTROPHILS,?AUTO?(Thou/mm3) 4.8 4.4 ??GLUCOSE,RANDOM?(mg/dL) 108?H 120?H ??BLOOD?UREA?NITROGEN?(mg/dL) 16 29?H ??CREATININE?(mg/dL) 1.40?H 1.80?H ??SODIUM?(mmol/L) 139 140 ??POTASSIUM?(mmol/L) 3.5 4.2 ??CHLORIDE?(mmol/L) 104 112?H ??CrCl?(CandG)?(ml/min) 58.99 42.89 ??AST/SGOT?(Unit/L) 11 20 ??ALT/SGPT?(Unit/L) <?7?L 9?L ??ALKALINE?PHOSPHATASE?(Unit/L) 69 73 ??BILIRUBIN,?TOTAL?(mg/dL) 0.9 0.5 ??PROTEIN?TOTAL?(gm/dl) 6.2 7.4 ??ALBUMIN,?SERUM?(gm/dl) 3.9 4.4 ??GLOBULIN?(gm/dl) 2.3 3.0 ??ALBUMIN/GLOBULIN?RATIO 1.7 1.5 ??CALCIUM,?SERUM?(mg/dL) 8.7 9.2 ??CALCIUM?SERUM?(CORRECTED)?(mg/dL) 8.8 9.2 ASSESSMENT/PLAN: Varun Coelho, a patient with a history of neuroendocrine tumor, presents with low platelet count and elevated chromogranin A levels, requiring management for an upcoming surgical procedure. ?Ilana Alexandra Assessment/Plan? 1. Well-differentiated neuroendocrine tumor, grade 1?2 involving liver parenchyma with possible pancreatic primary. Assessment and Plan: Bud is a male patient with a history of neuroendocrine tumor, presenting for follow-up of cancer treatment and management of associated symptoms including blood pressure fluctuations and low platelet count. Multiple liver tumors (03/15/2023) 5 HIAA?urine have increased l The patient had first dose of lanreotide 120 mg subcu on 12/26/2023. For about 3 days he had significant abdominal pain as well as diarrhea. Dose will be reduced to 75 . he did not receive any treatment until 05/2024 and thus about 6 month break A recent MRI of the abdomen done on 01/23/2024 showed progression of the liver lesions when it was compared to previous MRI done on March 15, 2023. 5 HIAA levels normal 09/24/2023 was 4.6 (less than 6.0) PET CT scan with the dotatate on 07/01/2024 is showing progression or more brighter spots than earlier in August Of note patient has not received any treatment for about 6 months and likely reason that his cancer has progressed Plan is to continue octreotide and sent for possible intervention on his liver and pancreas Neuroendocrine tumor Neuroendocrine Tumor Assessment: Patient's chromogranin A levels, a marker for neuroendocrine tumor activity, have significantly increased from 1499 in August to 2335 recently, indicating disease progression. The current octreotide treatment appears to be ineffective in controlling tumor activity. Plan: - Increase octreotide dose (specific dose increase not mentioned) - Evaluate effectiveness of new octreotide dose between September and October - Order chromogranin A level test at [facility] - Continue monthly octreotide injections (last injection on October 07)Patient has a known neuroendocrine tumor, likely originating from the tail of the pancreas with multiple hepatic lesions. Recent dotatate scan in June showed increased burden of radiotracer avid hepatic lesions compared to the previous scan in August. The tumor is clinically non-functional. Serum chromogranin A level is significantly eleated at 1499 (normal <100), indicating active disease. The patient is currently on lanreotide 75 mg (reduced from 120 mg due to side effects) and reports feeling better with increased appetite since starting treatment. Plan: - Continue lanreotide 75 mg monthly injections - Repeat serum chromogranin A and random urine chromogranin A levels in 2-3 weeks to assess treatment response - Consider repeating imaging in 4 months as per [facility] recommendation - Monitor for symptoms related to disease progression or treatment side effects Thrombocytopenia Assessment: Patient's platelet count has been consistently low, with the most recent lab in May showing 58. There has been a slight improvement, with recent counts in the 70s range. The low platelet count is a concern for the planned surgical procedure, necessitating intervention to increase platelet levels. Differential diagnoses and etiology of thrombocytopenia not discussed. Plan: - Start Promacta (eltrombopag) orally as an alternative to Nplate (romiplostim) - Consider short course of steroids if procedure is scheduled for November - Coordinate with Dr. Hall for platelet transfusion before the procedure - Monitor platelet count: - Perform platelet transfusion in the morning - Wait one hour post-transfusion - Check platelet count - Hold Helicase 2.5 mg BID for one day during the procedure, restart afterward - Reassess effectiveness of interventions and adjust as needed Hypercoagulability Assessment: Patient's D-dimer levels are elevated, indicating a possible blood clot. This is particularly concerning given the patient's recent travel history. No current symptoms of thrombosis reported. Plan: - Order bilateral leg ultrasound to rule out deep vein thrombosis - Continue current anticoagulation with Helicase 2.5 mg BID - Educate patient on thrombosis prevention during travel: - Walk every 2 hours during long-distance travel Vitamin B12 Deficiency Assessment: Patient's vitamin B12 levels have improved since starting supplementation, with levels increasing from the fifties to the seventies. However, levels remain suboptimal. Plan: - Continue monthly vitamin B12 injections - Add daily sublingual vitamin B12 supplements - Monitor B12 levels and adjust treatment as needed Constipation Assessment: Patient reports severe constipation, which is affecting his eating habits and quality of life. Plan: - Prescribe sodium citrate solution for constipation relief - Patient instructed to drink entire bottle - Encourage increased water intake Nutritional Counseling Assessment: Patient expresses concerns about diabetes risk due to family history. He has been cutting out carbohydrates and avoiding white flour. Patient also reports loss of taste for sweetness and tartness. Plan: - Provide dietary recommendations: - Encourage balanced meals with complex carbohydrates - Recommend oatmeal instead of corn-based products - Suggest spinach wraps as an alternative to corn tortillas - Advise consumption of warmer, freshly prepared foods - Recommend daily salad consumption with variety - Suggest use of slow cooker for preparing nutritious soups - Encourage daily walking for exercise ORDERS: Order # Description [id number] CBC + Comprehensive Metabolic Panel [id number] Lab Appointment [id number] CBC + Comprehensive Metabolic Panel [id number] Lab Appointment [id number] CBC + Comprehensive Metabolic Panel [id number] Lab Appointment [id number] CBC + Comprehensive Metabolic Panel [id number] Lab Appointment [id number] CBC + Comprehensive Metabolic Panel [id number] Lab Appointment [id number] CBC + Comprehensive Metabolic Panel [id number] Lab Appointment [id number] CBC + Comprehensive Metabolic Panel [id number] Lab Appointment [id number] CBC + Comprehensive Metabolic Panel [id number] Lab Appointment [id number] CBC + Comprehensive Metabolic Panel [id number] Lab Appointment RETURN TO CLINIC: I reviewed the diagnosis, prognosis, and recommended treatment/procedure options with the patient (and/or their legal training representative), including the potential benefits, risks, side effects and alternative therapies. We also discussed the option of no treatment and the possibility of clinical trial participation, if applicable. All questions were addressed, and they demonstrated understanding. They provided informed consent to proceed with the proposed plan of care. BILLING AND COMPLIANCE: I reviewed external records from providers outside my specialty as summarized above. I spent a total of 50 minutes on this patient?s care on the day of their visit excluding time spent related to any billed procedures. This time includes time spent with the patient as well as time spent documenting in the medical record, reviewing patients records and tests, obtaining history, placing orders, communicating with other healthcare professionals, counseling the patient, family or caregiver, and/or care coordination for the diagnoses above. Electronically Signed by: Miguel Alexandra MD T: 6:37 PM CC: Chelsi?John? PCP: Sacha Brasher Referring: Sacha Brasher This document was completed utilizing speech recognition software. Grammatical errors, random word insertions, pronoun errors, and incomplete sentences are an occasional consequence of this system due to software limitations, ambient noise, and hardware issues. Any formal questions or concerns about the content, text or information contained within the body of this dictation should be directly addressed to the provider for clarification.
== END 2024-11-26 23:59 | disposition home or self-care (01) ==
LOC: SCTC 09:06
PROVIDERS: PCP Internal Medicine; Referring Provider Internal Medicine; Visit Provider Internal Medicine Hematology & Oncology
DX: C7A.8 Other malignant neuroendocrine tumors (principal); D69.6 Thrombocytopenia, unspecified; R79.89 Other specified abnormal findings of blood chemistry; E53.8 Deficiency of other specified B group vitamins; K59.00 Constipation, unspecified; Z71.3 Dietary counseling and surveillance; Z83.3 Family history of diabetes mellitus
CPT/HCPCS: 96372; 99212; J1932; J3420; G0463

== ENCOUNTER 2024-11-12 13:04 | Emergency (ER) | payer MEDICARE, BC, SELFPAY ==
[2024-11-12 13:05] VITALS: BMI 25.6
[2024-11-12 13:19] VITALS: BP 130/87; PULSE 88; RESP 20; TEMP 36.5; O2SAT 98
--- NOTE | 2024-11-12 13:21 | PD.EDRME ---
Rapid Medical Screening Exam RME Arrival date/time: 11/12/24 13:04 64-year-old male presents Emergency Department for leg swelling patient had outpatient ultrasound today which confirmed DVT Chief Complaint: Recheck/Abnormal Lab/Rx Vital signs: Vital Signs Temperature 97.7 F 11/12/24 13:19 Pulse Rate 88 11/12/24 13:19 Respiratory Rate 20 11/12/24 13:19 Blood Pressure 130/87 H 11/12/24 13:19 Pulse Oximetry (%) 98 11/12/24 13:19 Oxygen Delivery Method Room Air 11/12/24 13:19
[2024-11-12 14:08] LABS: Basophils # (Auto) 0.1 Thou/mm3 (0.0-0.2); Basophils % (Auto) 1 % (0-2.5); Eosinophils # (Auto) 0.5 Thou/mm3 (0.0-0.5); Eosinophils % (Auto) 6 % (0-10); Hematocrit 30.3 % (41.0-53.0); Hemoglobin 10.7 g/dL (13.5-16.0); Immature Granulocytes Auto 0.02 Thou/mm3 (0.00-0.00); Lymphocytes # (Auto) 2.6 Thou/mm3 (1.0-4.8); Lymphocytes % (Auto) 31 % (10-50); Mean Corpuscular HGB Conc 35.3 g/dl (31.0-37.0); Mean Corpuscular Hemoglobin 29.6 pg (25.0-35.0); Mean Corpuscular Volume 84 fL (80-100); Monocytes # (Auto) 0.9 Thou/mm3 (0.0-0.8); Monocytes % (Auto) 10 % (0-12); Neutrophils # (Auto) 4.4 Thou/mm3 (1.8-7.7); Neutrophils % (Auto) 51 % (37-80); Nucleated Red Blood Cell # 0.00 Thou/mm3 (0.00-0.00); Nucleated Red Blood Cell % 0 /100 WBC (0); Platelet Count 93 Thou/mm3 (140-440); RDW Standard Deviation 49.3 fL (35.1-43.9); Red Blood Count 3.62 Miln/mm3 (4.50-5.90); White Blood Count 8.5 Thou/mm3 (3.8-10.6)
[2024-11-12 14:15] LABS: INR 1.2 (0.9-1.3); Partial Thromboplastin Time 29.7 Seconds (22.0-36.0); Prothrombin Time 13.0 Seconds (9.0-12.2)
[2024-11-12 14:30] LABS: Alanine Aminotransferase 9 U/L (10-49); Albumin, Serum 4.4 gm/dL (3.4-4.8); Albumin/Globulin Ratio 1.5 (1.2-2.2); Alkaline Phosphatase 73 U/L (46-116); Anion Gap 12 (7-16); Aspartate Amino Transferase 20 U/L (0-34); BUN/Creatinine Ratio 16 Ratio (12-20); Bilirubin,Total 0.5 mg/dL (0.3-1.2); Blood Urea Nitrogen 29 mg/dL (9-23); Calcium 9.2 mg/dL (8.3-10.6); Calcium (Corrected) 9.2 mg/dL (8.5-10.1); Carbon Dioxide 16.3 mMol/L (20.0-31.0); Chloride 112 mMol/L (98-107); Creatinine (Component) 1.8 mg/dL (0.6-1.3); Estimated Creatinine Clearance 38.3 mL/min (>60); Globulin 3.0 gm/dL (2.3-3.5); Glucose 120 mg/dL (74-106); Osmolality,Calculated 286 (275-295); Potassium 4.2 mMol/L (3.4-5.1); Sodium 140 mMol/L (136-145); Total Protein 7.4 gm/dL (5.7-8.2); eGFR 41 See Note
[2024-11-12 17:23] VITALS: BP 165/86; PULSE 71; RESP 18; TEMP 36.5; O2SAT 99
--- NOTE | 2024-11-12 18:16 | PD.EDRECHK ---
ED Recheck Abnl Lab Rx-RME/HPI General Chief Complaint: Recheck/Abnormal Lab/Rx Stated Complaint: I HAVE A BLOOD CLOT ON MY R LEG Time Seen by Provider: 11/12/24 17:54 Arrival date/time: 11/12/24 13:04 RME / HPI RME / HPI narrative: 11/12/24 13:04 64-year-old male presents Emergency Department for leg swelling patient had outpatient ultrasound today which confirmed DVT This section includes all my notes and documentations, including HPI, PE, and ED course. Abhi Franco MD HPI: 64yo male here after being sent over by his oncologist, Dr. Alexandra. Based on routine blood tests several days ago, he was sent here to make sure he has no blood clots. Low platelet level was concerning. Was diagnosed with PE about 15 months ago. PE negative on chest CTA about 6 months ago. Currently taking Eliquis 2.5 mg twice daily. No chest pain or shortness of breath. No leg pain or swelling. No other complaints. ROS: All negative except as documented in HPI. Physical Exam: General: Alert and oriented. No acute distress when remaining still. Eyes: Conjunctivae and lids clear. ENT: No nasal congestion. Neck: Supple. Heart: RRR. Lungs: No respiratory distress. Good air movement. No rhonchi, wheezing, rales. Skin: Warm and dry. Legs: No erythema/edema/calor/tenderness. Neuro: Alert and oriented X 3. I reviewed all diagnostic test results. My review of the leg US report is right DVT. Blood tests are unremarkable. At this point, diagnoses include right leg DVT. Recommended Eliquis 10 mg twice daily for 7 days then 5 mg twice daily and outpatient follow-up. Based on my best medical judgment, made decision no further evaluation or treatment indicated at this time. Patient understands and agrees to the discharge instructions customized and printed, see below. Discharge Instructions from Dr. Franco printed for you: 1. You have DVT in your right leg, see attached handout. 2. Take Eliquis 10 mg 2X daily for 7 days then 5 mg 2X daily until cleared by a doctor taking care of you. 3. Activity as tolerated. 4. When resting or sitting or sleeping, elevate your feet/ankles above your waist level. 5. See a private doctor on 11/13/2024 for recheck and further care. 6. Seek immediate medical care with chest pain or shortness of breath or fast heart rate or with any concerns. Your chest CT in December 2023 showed no blood clots in the lungs. Abhi Franco MD Related Data Home Medications ?Medication ?Instructions ?Recorded ?Confirmed lisinopril 40 mg tablet 40 mg PO DAILY 04/12/23 01/09/24 nicardipine 20 mg capsule 20 mg PO BID 04/12/23 01/09/24 hydrochlorothiazide 25 mg tablet 25 mg PO QWEEK 07/04/23 01/09/24 labetalol 100 mg tablet 100 mg PO BID 07/04/23 01/09/24 apixaban 5 mg tablet (Eliquis) 5 mg PO BID 01/09/24 01/09/24 Previous Rx's ?Medication ?Instructions ?Recorded acetaminophen 500 mg tablet 1,000 mg (2 x 500 mg) PO Q6H PRN 09/07/23 (Tylenol Extra Strength) fever or pain #30 tabs Allergies Allergy/AdvReac Type Severity Reaction Status Date / Time amoxicillin Allergy Intermediate Hives Verified 11/12/24 13:08 naproxen Allergy Intermediate Hives Verified 11/12/24 13:08 Review of Systems Review of Systems Systems Reviewed: All systems reviewed, normal except as documented Past Medical History Past Medical History NEUROLOGIC: Negative Neurological Disorders, Cerebrovascular Accident, Transient Ischemic Attacks (TIA), Dementia, Alzheimer's Disease, Parkinson's Disease, Brain Tumor, Meningitis, Seizures, Epilepsy, Multiple Sclerosis, Cerebral Palsy, Amyotrophic Lateral Sclerosis (ALS/[place] Gehrig's), Guillain-[place] Syndrome, Spina Bifida, Paralysis, Peripheral Neuropathy, Gayle's Palsy, Subdural Hematoma, Migraine, Head Trauma, Spinal Cord Injury or Traumatic Brain Injury CARDIAC: Positive Cardiac Disorders, Hypercholesterolemia, Hypertension and Hypotension; Negative Myocardial Infarction, Cardiac Arrhythmia, Atrial Fibrillation, Angina, Heart Murmur, Coronary Artery Disease, Atherosclerotic Heart Disease, Peripheral Vascular Disease, Aneurysm, Congestive Heart Failure, Congenital Heart Disease, Valvular Heart Disease, Rheumatic Fever, Cardiomyopathy, Edema, Pericarditis, Cellulitis, Deep Vein Thrombosis or Varicose Veins RESPIRATORY: Positive Bronchitis (IN THE PAST) and Pneumonia (IN THE PAST); Negative Chronic Obstructive Pulmonary Disease (COPD), Asthma, Emphysema, Pulmonary Fibrosis, Cystic Fibrosis, Tuberculosis, Pulmonary Embolism, Pulmonary Edema or Sleep Apnea GASTROINTESTINAL: Positive Gastrointestinal Disorders (fatty diet gives diarrhea. LIVER TUMORS); Negative Cirrhosis, Pancreatitis, Celiac Disease, Gall Bladder Disease, Gastrointestinal Bleed, Esophageal Varices, Andrew's Esophagus, Colitis, Ulcerative Colitis, Diverticulitis, Diverticulosis, Ulcer, Colorectal Cancer, Irritable Bowel, Crohn's Disease, Obstructive Bowel, Hiatal Hernia, Hemorrhoids, Gastroesophageal Reflux Disease or Obesity GENITOURINARY: Positive Genitourinary Disorders, Renal Disease (CKD) and Kidney Stones; Negative Polycystic Kidney Disease, Neurogenic Bladder, Inguinal Hernia, Dialysis, Prostate Cancer or Benign Prostatic Hyperplasia REPRODUCTIVE: Negative Testicular Cancer MUSCULOSKELETAL: Negative Musculoskeletal Disorders, Muscular Dystrophy, Myasthenia Gravis, Marfan's Syndrome, Bone Cancer, Arthritis, Rheumatoid Arthritis, Osteoporosis, Degenerative Disk Disease, Gout, Scoliosis, Carpal Tunnel Syndrome, Fibromyalgia, Fractures, Degenerative Joint Disease, Osteomyelitis or Poliovirus ENT: Positive Cataracts and Retinal Detachment (IN THE PAST); Negative Glaucoma, Blind, Macular Degeneration, Ear Infection, Deafness, Head Trauma or Eye Prosthesis ENDOCRINE: Negative Endocrine Disorders, Diabetes Mellitus Type 1, Diabetes Mellitus Type 2, Hypoglycemia, Linda's Syndrome, Cortland's Disease, Hyperthyroidism, Hypothyroidism, Parathyroid Disease, Pituitary Disease, Systemic Lupus Erythematosus, Syndrome of Inappropriate Antidiuretic Hormone (SIADH), Adrenal Disease or Graves' Disease HEMATOLOGIC: Negative Blood Disorders, Anemia, Leukemia, Hemophilia, Thalassemia, Sickle Cell Disease or Clotting Problems PSYCHO/SOCIAL: Negative Psychiatric Problems, Schizophrenia, Recreational Drug Use, Bipolar Disorder, Depression, Anxiety, Behavior Problems, Self-Mutilation, Attention Deficit Disorder, Attention Deficit Hyperactivity Disorder, Depression, Post Traumatic Stress Disorder or Eating Disorder OTHER HISTORY: Positive Chicken Pox and Mumps; Negative Hospitalization, Autoimmune Disease, Down Syndrome, Autism, Developmental Delay, Shingles, Falls, Blood Transfusions, Blood Transfusion Reaction, Anesthesia Reactions, Organ Transplant, Chemotherapy, Radiation Therapy, Hyperbaric Therapy, MRSA, VRSA, Vancomycin-Resistant Enterococci, Human Immunodeficiency Virus (HIV), Measles, Rubella (Portuguese Measles), Pertussis, Clostridium Difficile, Cancer, Colorectal Cancer, Lung Cancer, Prostate Cancer or Testicular Cancer Family History FAMILY HISTORY: Positive Family Anesthesia Reaction (GRANDFATHER ALLERGIC TO ETHER); Negative Family Psychiatric Problems, Family Respiratory Disorders, Family Cardiac Disorders, Family Gastrointestinal Problems, Family Cancer or Family Surgery Surgical History SURGICAL: Positive Eye Surgery and Oral Surgery; Negative Cardiac Surgery, Open Heart Surgery, Coronary Artery Bypass Graft, Valve Replacement, Vascular Surgery, Coronary Stent, Cardiac Catheterization, Pacemaker, Angiogram, Auto Implanted Cardiovert Defib, Carotid Endarterectomy, Endocrine Surgery, Thyroidectomy, Ear Surgery, Tympanostomy Tube, Nose Surgery, Tonsillectomy, Adenoidectomy, Cochlear Implant, Corneal Transplant, Throat Surgery, Abdominal Surgery, Tracheostomy, Gastric Bypass Surgery, Gastrostomy, Bowel Surgery, Nephrectomy, Transurethral Resection, Joint Replacement, Amputation, Open Reduction Internal Fixation, Arthroscopy, Neurologic Surgery, Brain Shunt, Vasectomy or Organ Transplant Social History SMOKING STATUS: Never smoker ED Exam Narrative Physical exam: As noted in HPI. Course Quality Measures none Orders Category Date Time Status CBC Stat Lab 11/12/24 13:43 Completed Comprehensive Metabolic Panel Stat Lab 11/12/24 13:43 Completed Partial Thromboplastin Time Stat Lab 11/12/24 13:43 Completed Prothrombin Time with INR Stat Lab 11/12/24 13:43 Completed Vital Signs Vital signs: Vital Signs Temperature 97.7 F 11/12/24 13:19 Pulse Rate 88 11/12/24 13:19 Respiratory Rate 20 11/12/24 13:19 Blood Pressure 130/87 H 11/12/24 13:19 Pulse Oximetry (%) 98 11/12/24 13:19 Oxygen Delivery Method Room Air 11/12/24 13:19 Recheck / Abnormal Lab / Rx MDM Narrative MDM Narrative:: 64yo male here after being sent over by his oncologist, Dr. Alexandra. Based on routine blood tests several days ago, he was sent here to make sure he has no blood clots. Low platelet level was concerning. Was diagnosed with PE about 15 months ago. PE negative on chest CTA about 6 months ago. Currently taking Eliquis 2.5 mg twice daily. No chest pain or shortness of breath. No leg pain or swelling. No other complaints. Patient data External records reviewed:: [facility] previous records (Per chart review, patient has no relevant previous ED visits. Reviewed outpatient ultrasound from today.) Clinical information provided by:: patient Social determinants that could affect healthcare access:: none Patient has the following chronic illnesses:: neuroendocrine tumor liver, HTN How is presenting disease/condition affected by chronic disease/condition?: uneffected by Evaluation data The following diagnostics were reviewed and interpreted by me:: lab results Lab and/or radiology exams considered but not ordered:: none Interpretation Summary: I reviewed all diagnostic test results. My review of the leg US report is right DVT. Blood tests are unremarkable. Medications / Prescriptions Medications or Prescriptions considered but not ordered:: none Medication administrations:: none Consultations Consultation(s) initiated? (list below): No Diagnosis Recheck Differential Diagnosis: other (PE, DVT, thrombocytopenia) Most likely diagnosis given after review of the tests above:: Right leg DVT Admission Indicated Admission indicated?: not indicated Explain why admission is indicated or not indicated:: With no condition needing emergent intervention, there was no indication for admission. Admission Request Was there a request for admission?: No Disposition Plan Disposition Plan: Discharge Discharge Attestation Discharge Attestation: The patient and all family members were given an opportunity to ask questions and understood the discharge instructions. Discharge instructions specifically effects, indications for sooner follow up or return to the emergency department, and the expected course of current diagnosis. Patient condition: Stable Discharge Plan Plan Patient Disposition: HOME (Self Care) Prescriptions/Referrals Prescriptions/Med Rec: No Action Eliquis 5 mg tablet 5 mg PO BID lisinopril 40 mg Tablet 40 mg PO DAILY nicardipine 20 mg Capsule 20 mg PO BID labetalol 100 mg tablet 100 mg PO BID Patient Comments: TAKE 1 TABLET BY MOUTH TWICE A DAY hydrochlorothiazide 25 mg tablet 25 mg PO QWEEK acetaminophen [Tylenol Extra Strength] 500 mg tablet 1,000 mg PO Q6H PRN (Reason: fever or pain) Qty: 30 0RF Referrals: Sacha Brasher MD [Primary Care Provider] - In 1 week Problem List Clinical Impression: Right leg DVT Patient/Caregiver Discharge Instructions Discharge Activity: activity as tolerated Education Materials: ED Deep Vein Thrombosis (DVT) Additional Instructions: Discharge Instructions from Dr. Franco printed for you: 1. You have DVT in your right leg, see attached handout. 2. Take Eliquis 10 mg 2X daily for 7 days then 5 mg 2X daily until cleared by a doctor taking care of you. 3. Activity as tolerated. 4. When resting or sitting or sleeping, elevate your feet/ankles above your waist level. 5. See a private doctor on 11/13/2024 for recheck and further care. 6. Seek immediate medical care with chest pain or shortness of breath or fast heart rate or with any concerns. Your chest CT in December 2023 showed no blood clots in the lungs. Print Language: [employer] Stand Alone Forms: Ketty Award Info., Patient Portal Info Letter
== END 2024-11-12 18:51 | disposition home or self-care (01) ==
PROVIDERS: Nurse Practitioner Primary Care; Emergency Provider Emergency Medicine; PCP Internal Medicine
DX: I82.401 Acute embolism and thrombosis of unspecified deep veins of right lower extremity (principal); Z79.01 Long term (current) use of anticoagulants
CPT/HCPCS: 36415; 80053; 85025; 85610; 85730; 93970; 99283

== ENCOUNTER → 2024-11-12 | Outpatient (CLI) | payer MEDICARE, BC, SELFPAY ==
--- NOTE | 2024-11-12 | XR_ITS ---
Examination: Venous duplex lower extremity sonogram, bilateral. Date and time of exam: November 13, 2019 09/06/2020 INDICATIONS: Bilateral leg cramping beginning one week ago, diagnosis carcinoid tumors Technique: Multiple sonographic images of the deep venous system have been obtained. B-mode/2-D grayscale imaging of vascular structures and Doppler spectral analysis (waveforms) and color performed Both legs are examined. Findings: Positive for thrombus in the right mid and distal superficial femoral vein and right popliteal vein and right peroneal vein right posterior tibial vein Left lower extremity unremarkable IMPRESSION: Extensive acute deep vein thrombus right lower extremity
== END | disposition home or self-care (01) ==
PROVIDERS: PCP Internal Medicine; Referring Provider Internal Medicine Hematology & Oncology; Visit Provider Internal Medicine Hematology & Oncology
DX: I82.411 Acute embolism and thrombosis of right femoral vein (principal); I82.431 Acute embolism and thrombosis of right popliteal vein; I82.451 Acute embolism and thrombosis of right peroneal vein; I82.441 Acute embolism and thrombosis of right tibial vein; R25.2 Cramp and spasm
CPT/HCPCS: 93970

== ENCOUNTER 2024-12-02 10:34 | Outpatient (RCR) | payer MEDICARE, BC, SELFPAY ==
--- NOTE | 2024-12-07 01:12 | CTCFLWUP_ITS ---
Patient: BUD HOLDEN : 1960 Page 8 of 11 FOLLOW UP NOTE DATE OF SERVICE: 11/30/2024 NAME: BUD HOLDEN ACCOUNT: [id number] : 1960 AGE: 64 INTERVAL HISTORY: Patient has been having diarrhea for last few dayS. Patient attributes diarrhea to something he has eaten No fever no abdominal pain no other symptoms subjective: Chief Complaint Low platelet count, high chromogranin A level (cancer marker), constipation, problems eating, loss of sense of taste for sweetness and tartness History of Present Illness Varun Coelho presents for follow-up of his ongoing oncological care. Patient's diarrhea is only for 2 to 3 days. Mr. De Lunas cancer marker, Chromogranin A, has been increasing, rising from 1499 in August to 2335 recently, indicating that his current treatment may not be effective. He received his last octreotide shot on October 07. The patient has been adhering to his prescribed blood thinner regimen of 2.5 BID. The patient has been experiencing symptoms that may indicate a possible blood clot, with high D-dimer levels noted. He recently traveled, which may have contributed to this risk. To manage his health, Mr. Coelho has been making dietary changes, including cutting out carbohydrates and avoiding white flour due to concerns about developing diabetes, given his family history. Mr. Coelho continues to receive monthly B12 injections, which have led to some improvement in his numbers, rising from the fifties to the seventies. Despite this, his Vitamin B12 levels remain low. The patient reports that his blood pressure and cholesterol are well-controlled, with his primary care provider being satisfied with these numbers. Medications and Supplements - Helicase 2.5 BID - Blood thinner - Octreotide - Administered as a shot on October 07 - Vitamin B12 - Administered as a monthly injection - Has improved patient's numbers from fifties to seventies Review of Systems General: Positive for decreased appetite. HEENT: Positive for loss of taste sensation (sweetness and tartness). Gastrointestinal: Positive for constipation. 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 Holden is a 64-year-old male with the following oncology history. 02/06/2023: Mr. Holden had a renal and bladder ultrasound to evaluate the cause for renal insufficiency. 02/11/2023: CT scan of the abdomen without IV contrast 03/15/2023: MRI of the abdomen with and without contrast? 04/16/2023: CT-guided biopsy of the right lobe liver lesion? 05/27/2023: 24-hour urine 5-HIAA level 07/25/2023: PET/CT scan at [facility] 07/04/2023: EGD done Mr. Holden also had colonoscopy done which did not reveal any significant abnormalities. 09/05/2023: Dotatate PET CT scan at [facility]? 11/27/2023: Dr. Samantha Odonnell of [facility] gastrointestinal medical oncology recommended Mr. Holden to be started on lanreotide in view of the bulky disease. 12/26/2023: Mr. Holden received first dose of lanreotide 120 mg subcu. 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 Tobacco?Use:?Denies ETOH?Use:?Denies Drug?Note:?Denies Social?History?Note:?Lives?with? MEDICATIONS: 1. Eliquis - 5 mg 1 tab Twice a Day 2. labetalol - 100 mg 1 tab Twice a Day 3. losartan - 50 mg 1 tab Daily 4. losartan - 100 mg 1 tab Twice a Day 5. sodium citrate - 4 gram /100 mL (4 %) 4 gm weekly if no bm for 7 days Medications Last Reconciled by Karina Ivan MD on 11/30/2024 ALLERGIES: Penicillins; naproxen REVIEW OF SYSTEMS: A complete 14-point review of systems was performed and is negative except as noted in interval history. PHYSICAL EXAMINATION: VITAL SIGNS: Temperature?100, B/P?142/91, Oxygen?Saturation?96% Weight?163.4?lbs (Change?since?11/04/24:?0?lbs) PAIN: 0 - No pain ECOG Performance Status: None EYE: Conjunctivae is pink. MOUTH: Oral cavity is dry. CHEST: Clear to auscultation. No wheezes or rales audible. CARDIAC: Rhythm regular, no murmurs or gallops present. ABDOMEN: Soft. No hepatosplenomegaly. EXTREMITIES: No pedal edema or cyanosis. LABORATORY DATA: I have personally reviewed and interpreted each of the patient?s relevant lab tests, abnormal findings are below: Date 06/11/24 11/12/24 ??WHITE?BLOOD?COUNT?(Thou/mm3) 8.5 8.5 ??RED?BLOOD?COUNT?(Miln/mm3) 3.48?L 3.62?L ??HEMOGLOBIN?(gm/dl) 10.1?L 10.7?L ??HEMATOCRIT?(%) 29.5?L 30.3?L ??PLATELET?COUNT?(Thou/mm3) 53?L 93?L ??NEUTROPHILS?%,?AUTO?(%) 56 51 ??LYMPH?%,?AUTO?(%) 27 31 ??NEUTROPHILS,?AUTO?(Thou/mm3) 4.8 4.4 ??GLUCOSE,RANDOM?(mg/dL) 108?H 120?H ??BLOOD?UREA?NITROGEN?(mg/dL) 16 29?H ??CREATININE?(mg/dL) 1.40?H 1.80?H ??SODIUM?(mmol/L) 139 140 ??POTASSIUM?(mmol/L) 3.5 4.2 ??CHLORIDE?(mmol/L) 104 112?H ??CrCl?(CandG)?(ml/min) 58.99 42.89 ??AST/SGOT?(Unit/L) 11 20 ??ALT/SGPT?(Unit/L) <?7?L 9?L ??ALKALINE?PHOSPHATASE?(Unit/L) 69 73 ??BILIRUBIN,?TOTAL?(mg/dL) 0.9 0.5 ??PROTEIN?TOTAL?(gm/dl) 6.2 7.4 ??ALBUMIN,?SERUM?(gm/dl) 3.9 4.4 ??GLOBULIN?(gm/dl) 2.3 3.0 ??ALBUMIN/GLOBULIN?RATIO 1.7 1.5 ??CALCIUM,?SERUM?(mg/dL) 8.7 9.2 ??CALCIUM?SERUM?(CORRECTED)?(mg/dL) 8.8 9.2 ASSESSMENT/PLAN: Varun Coelho, a patient with a history of neuroendocrine tumor, presents with low platelet count and elevated chromogranin A levels, requiring management for an upcoming surgical procedure. 1. Well-differentiated neuroendocrine tumor, grade 1?2 involving liver parenchyma with possible pancreatic primary. Assessment and Plan: Bud is a male patient with a history of neuroendocrine tumor, presenting for follow-up of cancer treatment and management of associated symptoms including blood pressure fluctuations and low platelet count. Multiple liver tumors (03/15/2023) 5 HIAA?urine have increased l The patient had first dose of lanreotide 120 mg subcu on 12/26/2023. For about 3 days he had significant abdominal pain as well as diarrhea. Dose will be reduced to 75 . he did not receive any treatment until 05/2024 and thus about 6 month break A recent MRI of the abdomen done on 01/23/2024 showed progression of the liver lesions when it was compared to previous MRI done on March 15, 2023. 5 HIAA levels normal 09/24/2023 was 4.6 (less than 6.0) PET CT scan with the dotatate on 07/01/2024 is showing progression or more brighter spots than earlier in August Of note patient has not received any treatment for about 6 months and likely reason that his cancer has progressed Dose was increased to 100 Serum chromogranin levels reviewed and have stabilized. . Continue current octreotide dose - Order chromogranin A level test at [facility] tumor is clinically non-functional. Will follow-up on next serum chromogranin level and if found to be elevated will give short course of chemotherapy with [place] Cisplatin etoposide for 4 cycles followed by octreotide Thrombocytopenia Assessment: Patient's platelet count has been consistently low, with the most recent lab in May showing 58. There has been a slight improvement, with recent counts in the 70s range. The low platelet count is a concern for the planned surgical procedure, necessitating intervention to increase platelet levels. Differential diagnoses and etiology of thrombocytopenia not discussed. Plan: - Start Promacta (eltrombopag) orally as an alternative to Nplate (romiplostim) - Consider short course of steroids if procedure is scheduled for November - Coordinate with Dr. Hall for platelet transfusion before the procedure - Monitor platelet count: - Perform platelet transfusion in the morning - Wait one hour post-transfusion - Check platelet count - Hold Helicase 2.5 mg BID for one day during the procedure, restart afterward - Reassess effectiveness of interventions and adjust as needed Hypercoagulability Assessment: Patient's D-dimer levels are elevated, indicating a possible blood clot. 11/12/2024 ultrasound of the leg positive for thrombus in the right mid and distal superficial femoral vein and right popliteal vein and right peroneal vein right posterior tibial vein plan: - Continue current anticoagulation with Eliquis 5 mg BID. Hold if platelets are below 50 - Educate patient on thrombosis prevention during travel: - Walk every 2 hours during long-distance travel Vitamin B12 Deficiency Assessment: Patient's vitamin B12 levels have improved since starting supplementation, with levels increasing from the fifties to the seventies. However, levels remain suboptimal. Plan: - Continue monthly vitamin B12 injections - Add daily sublingual vitamin B12 supplements - Monitor B12 levels and adjust treatment as needed ORDERS: Order # Description [id number] CBC + Comprehensive Metabolic Panel [id number] Lab Appointment [id number] CBC + Comprehensive Metabolic Panel [id number] Lab Appointment [id number] CBC + Comprehensive Metabolic Panel [id number] Lab Appointment [id number] CBC + Comprehensive Metabolic Panel [id number] Lab Appointment [id number] CBC + Comprehensive Metabolic Panel [id number] Lab Appointment [id number] CBC + Comprehensive Metabolic Panel [id number] Lab Appointment [id number] CBC + Comprehensive Metabolic Panel [id number] Lab Appointment [id number] CBC + Comprehensive Metabolic Panel [id number] Lab Appointment RETURN TO CLINIC: I reviewed the diagnosis, prognosis, and recommended treatment/procedure options with the patient (and/or their legal compliance representative dealer), including the potential benefits, risks, side effects and alternative therapies. We also discussed the option of no treatment and the possibility of clinical trial participation, if applicable. All questions were addressed, and they demonstrated understanding. They provided informed consent to proceed with the proposed plan of care. BILLING AND COMPLIANCE: I reviewed external records from providers outside my specialty as summarized above. I spent a total of 50 minutes on this patient?s care on the day of their visit excluding time spent related to any billed procedures. This time includes time spent with the patient as well as time spent documenting in the medical record, reviewing patients records and tests, obtaining history, placing orders, communicating with other healthcare professionals, counseling the patient, family or caregiver, and/or care coordination for the diagnoses above. Electronically Signed by: {Object.Sanct_ID*PnP.NameFL@M}, {Object.Sanct_ID*PnP.Suffix@U} D: {Object.Sanct_Date} T: {Object.Sanct_Time} CC: Chelsi?John,? PCP: Sacha Brasher Referring: Sacha Brasher This document was completed utilizing speech recognition software. Grammatical errors, random word insertions, pronoun errors, and incomplete sentences are an occasional consequence of this system due to software limitations, ambient noise, and hardware issues. Any formal questions or concerns about the content, text or information contained within the body of this dictation should be directly addressed to the provider for clarification.
== END 2024-12-27 23:59 | disposition home or self-care (01) ==
LOC: SCTC 10:34
PROVIDERS: PCP Internal Medicine; Referring Provider Internal Medicine; Visit Provider Internal Medicine Hematology & Oncology
DX: C7A.8 Other malignant neuroendocrine tumors (principal); R97.8 Other abnormal tumor markers; D69.6 Thrombocytopenia, unspecified; I82.411 Acute embolism and thrombosis of right femoral vein; I82.431 Acute embolism and thrombosis of right popliteal vein; I82.451 Acute embolism and thrombosis of right peroneal vein; Z79.01 Long term (current) use of anticoagulants; E53.8 Deficiency of other specified B group vitamins
CPT/HCPCS: 96372; 99212; J1932; G0463

== ENCOUNTER 2025-01-11 12:56 | Outpatient (RCR) | payer MEDICARE, BC, SELFPAY | END 2025-01-26 23:59 | disposition home or self-care (01) | LOC: SCTC 12:56 | PROVIDERS: PCP Internal Medicine; Referring Provider Internal Medicine Hematology & Oncology; Visit Provider Internal Medicine Hematology & Oncology | DX: C7A.8 Other malignant neuroendocrine tumors (principal); E53.8 Deficiency of other specified B group vitamins; D69.6 Thrombocytopenia, unspecified; I82.411 Acute embolism and thrombosis of right femoral vein; I82.431 Acute embolism and thrombosis of right popliteal vein; I82.451 Acute embolism and thrombosis of right peroneal vein; I82.441 Acute embolism and thrombosis of right tibial vein | CPT/HCPCS: 96372; J1932; J3420 ==

== ENCOUNTER → 2025-02-18 | Outpatient (CLI) | payer MEDICARE, BC, SELFPAY ==
--- NOTE | 2025-02-18 13:06 | XR_ITS ---
Examination: Venous duplex lower extremity sonogram, bilateral. Date and time of exam: February 18, 2025, 1340 hours INDICATIONS: History positive right DVT lower extremity deep venous system November 12, 2024, right mid and distal superficial femoral, popliteal peroneal posterior tibial veins, pancreatic carcinoma diagnosis, patient is anticoagulated Technique: Multiple sonographic images of the deep venous system have been obtained. B-mode/2-D grayscale imaging of vascular structures and Doppler spectral analysis (waveforms) and color performed Both legs are examined. Findings: Again noted nonocclusive DVT right superficial femoral popliteal peroneal posterior tibial veins Also nonocclusive DVT in the left peroneal vein IMPRESSION: Compared to the prior venous Doppler study no significant improvement in extensive deep vein thrombus right lower extremity New nonocclusive thrombus in the left peroneal vein
== END | disposition home or self-care (01) ==
PROVIDERS: PCP Internal Medicine; Referring Provider Internal Medicine Hematology & Oncology; Visit Provider Internal Medicine Hematology & Oncology
DX: I82.452 Acute embolism and thrombosis of left peroneal vein (principal)
CPT/HCPCS: 93970

== ENCOUNTER 2025-02-22 09:17 | Outpatient (RCR) | payer MEDICARE, BC, SELFPAY ==
--- NOTE | 2025-02-22 13:49 | CTCFLWUP_ITS ---
Patient: BUD HOLDEN : 1960 Page 8 of 10 FOLLOW UP NOTE DATE OF SERVICE: 02/22/2025 NAME: BUD HOLDEN ACCOUNT: [id number] : 1960 AGE: 65 INTERVAL HISTORY: Patient has been having better appetite and diarrhea symptoms are few. Have an episode where he felt he has chest discomfort. Patient is on Eliquis. subjective: Chief Complaint Low platelet count, high chromogranin A level (cancer marker), constipation, problems eating, loss of sense of taste for sweetness and tartness History of Present Illness Varun Coelho presents for follow-up of his ongoing oncological care. Patient's diarrhea is only for 2 to 3 days. Mr. De Lunas cancer marker, Chromogranin A, has been increasing, rising from 1499 in August to 2335 recently, indicating that his current treatment may not be effective. He received his last octreotide shot on October 07. The patient has been adhering to his prescribed blood thinner regimen of 2.5 BID. The patient has been experiencing symptoms that may indicate a possible blood clot, with high D-dimer levels noted. He recently traveled, which may have contributed to this risk. To manage his health, Mr. Coelho has been making dietary changes, including cutting out carbohydrates and avoiding white flour due to concerns about developing diabetes, given his family history. Mr. Coelho continues to receive monthly B12 injections, which have led to some improvement in his numbers, rising from the fifties to the seventies. Despite this, his Vitamin B12 levels remain low. The patient reports that his blood pressure and cholesterol are well-controlled, with his primary care provider being satisfied with these numbers. Medications and Supplements - Helicase 2.5 BID - Blood thinner - Octreotide - Administered as a shot on October 07 - Vitamin B12 - Administered as a monthly injection - Has improved patient's numbers from fifties to seventies Review of Systems General: Positive for decreased appetite. HEENT: Positive for loss of taste sensation (sweetness and tartness). Gastrointestinal: Positive for constipation. Objective: Laboratory, Imaging, and Diagnostic Test Results - Date: May 2024 - Platelets: 58 - Date: August 2024 - Chromogranin A: 1499 - Date: September 2024 (recent) - Chromogranin A: 2335 - D-dimer: Elevated - Platelets: 73 - White blood cell count: Improved (specific value not provided) - Previous results: - Platelets: 50-59 (date not specified) ONCOLOGY HISTORY:?[facility] Hx? 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 Holden is a 65-year-old male with the following oncology history. 02/06/2023: Mr. Holden had a renal and bladder ultrasound to evaluate the cause for renal insufficiency. 02/11/2023: CT scan of the abdomen without IV contrast 03/15/2023: MRI of the abdomen with and without contrast? 04/16/2023: CT-guided biopsy of the right lobe liver lesion? 05/27/2023: 24-hour urine 5-HIAA level 07/25/2023: PET/CT scan at [facility] 07/04/2023: EGD done Mr. Holden also had colonoscopy done which did not reveal any significant abnormalities. 09/05/2023: Dotatate PET CT scan at [facility]? 11/27/2023: Dr. Samantha Odonnell of [facility] gastrointestinal medical oncology recommended Mr. Holden to be started on lanreotide in view of the bulky disease. 12/26/2023: Mr. Holden received first dose of lanreotide 120 mg subcu. 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 Tobacco?Use:?Denies ETOH?Use:?Denies Drug?Note:?Denies Social?History?Note:?Lives?with? MEDICATIONS: 1. Eliquis - 5 mg 1 tab Twice a Day 2. labetalol - 100 mg 1 tab Twice a Day 3. losartan - 50 mg 1 tab Daily 4. losartan - 100 mg 1 tab Twice a Day 5. sodium citrate - 4 gram /100 mL (4 %) 4 gm weekly if no bm for 7 days?[place] Meds? Medications Last Reconciled by Karina Ivan MD on 02/22/2025 ALLERGIES: Penicillins; naproxen REVIEW OF SYSTEMS: A complete 14-point review of systems was performed and is negative except as noted in interval history. PHYSICAL EXAMINATION:?[facility] PE? VITAL SIGNS: Temperature?98.3, B/P?113/73, Oxygen?Saturation?97% Weight?162?lbs (Change?since?02/16/25:?0?lbs) PAIN: 0 - No pain ECOG Performance Status: 2 - Symptomatic; ambulatory; capable of self-care; >50% of waking hrs. not in bed EYE: Conjunctivae is white MOUTH: Oral cavity is dry. CHEST:. Chest moves normal with respiration on room air CARDIAC: No visible neck veins ABDOMEN: No abdominal distention noted EXTREMITIES: No edema or swellings noted LABORATORY DATA: I have personally reviewed and interpreted each of the patient?s relevant lab tests, abnormal findings are below: Date 06/11/24 11/12/24 ??WHITE?BLOOD?COUNT?(Thou/mm3) 8.5 8.5 ??RED?BLOOD?COUNT?(Miln/mm3) 3.48?L 3.62?L ??HEMOGLOBIN?(gm/dl) 10.1?L 10.7?L ??HEMATOCRIT?(%) 29.5?L 30.3?L ??PLATELET?COUNT?(Thou/mm3) 53?L 93?L ??NEUTROPHILS?%,?AUTO?(%) 56 51 ??LYMPH?%,?AUTO?(%) 27 31 ??NEUTROPHILS,?AUTO?(Thou/mm3) 4.8 4.4 ??GLUCOSE,RANDOM?(mg/dL) 108?H 120?H ??BLOOD?UREA?NITROGEN?(mg/dL) 16 29?H ??CREATININE?(mg/dL) 1.40?H 1.80?H ??SODIUM?(mmol/L) 139 140 ??POTASSIUM?(mmol/L) 3.5 4.2 ??CHLORIDE?(mmol/L) 104 112?H ??CrCl?(CandG)?(ml/min) 58.99 42.89 ??AST/SGOT?(Unit/L) 11 20 ??ALT/SGPT?(Unit/L) <?7?L 9?L ??ALKALINE?PHOSPHATASE?(Unit/L) 69 73 ??BILIRUBIN,?TOTAL?(mg/dL) 0.9 0.5 ??PROTEIN?TOTAL?(gm/dl) 6.2 7.4 ??ALBUMIN,?SERUM?(gm/dl) 3.9 4.4 ??GLOBULIN?(gm/dl) 2.3 3.0 ??ALBUMIN/GLOBULIN?RATIO 1.7 1.5 ??CALCIUM,?SERUM?(mg/dL) 8.7 9.2 ??CALCIUM?SERUM?(CORRECTED)?(mg/dL) 8.8 9.2 ASSESSMENT/PLAN:?Ilana Alexandra Assessment/Plan? Varun Coelho, a patient with a history of neuroendocrine tumor, presents with low platelet count and elevated chromogranin A levels, requiring management for an upcoming surgical procedure. 1. Well-differentiated neuroendocrine tumor, grade 1?2 involving liver parenchyma with possible pancreatic primary. Assessment and Plan: Bud is a male patient with a history of neuroendocrine tumor, presenting for follow-up of cancer treatment and management of associated symptoms including blood pressure fluctuations and low platelet count. Multiple liver tumors (03/15/2023) 5 HIAA?urine have increased l The patient had first dose of lanreotide 120 mg subcu on 12/26/2023. For about 3 days he had significant abdominal pain as well as diarrhea. Dose will be reduced to 75 . he did not receive any treatment until 05/2024 and thus about 6 month break A recent MRI of the abdomen done on 01/23/2024 showed progression of the liver lesions when it was compared to previous MRI done on March 15, 2023. 5 HIAA levels normal 09/24/2023 was 4.6 (less than 6.0) PET CT scan with the dotatate on 07/01/2024 is showing progression or more brighter spots than earlier in August Of note patient has not received any treatment for about 6 months and likely reason that his cancer has progressed Dose was increased to 100 Serum chromogranin levels reviewed and have stabilized. . Continue current octreotide dose Patient follows with oncology at [facility] and I reviewed notes from October 2024 and recommendation is plan for surgery at resection. Advised patient to discuss with his oncologist. Patient do not want to change any therapy until it is recommended by [facility] Patient still has symptoms from the disease and his chromogranin level is above 3000 Patient will likely benefit from short course chemotherapy cisplatin etoposide for 4 cycles followed by octreotide I will continue octreotide at this time Thrombocytopenia Assessment: Patient's platelet count has been consistently low, Platelets are still above 50 and below 100 Plan-follow with hematology at [facility] and transfuse for any procedure Patient's D-dimer levels are elevated, indicating a possible blood clot. ` 11/12/2024 ultrasound of the leg positive for thrombus in the right mid and distal superficial femoral vein and right popliteal vein and right peroneal vein right posterior tibial vein. Patient's new ultrasound in January 2025 also shows a new blood clot in the peroneal vessel - Continue current anticoagulation with Eliquis 5 mg BID. Hold if platelets are below 50 - Educate patient on thrombosis prevention during travel: - Walk every 2 hours during long-distance travel Vitamin B12 Deficiency Assessment: Patient's vitamin B12 levels have improved since starting supplementation, with levels increasing from the fifties to the seventies. However, levels remain suboptimal. Plan: - Continue monthly vitamin B12 injections - Add daily sublingual vitamin B12 supplements - Monitor B12 levels and adjust treatment as needed ORDERS: Order # Description [id number] Comprehensive Metabolic Panel - 12 + CBC with Auto Diff [id number] Urine 5 HIAA [id number] Chromogranin A [id number] Follow Up 2 Months RETURN TO CLINIC: I reviewed the diagnosis, prognosis, and recommended treatment/procedure options with the patient (and/or their legal sales representative graphic art), including the potential benefits, risks, side effects and alternative therapies. We also discussed the option of no treatment and the possibility of clinical trial participation, if applicable. All questions were addressed, and they demonstrated understanding. They provided informed consent to proceed with the proposed plan of care. BILLING AND COMPLIANCE: I reviewed external records from providers outside my specialty as summarized above. I spent a total of 50 minutes on this patient?s care on the day of their visit excluding time spent related to any billed procedures. This time includes time spent with the patient as well as time spent documenting in the medical record, reviewing patients records and tests, obtaining history, placing orders, communicating with other healthcare professionals, counseling the patient, family or caregiver, and/or care coordination for the diagnoses above. Electronically Signed by: Miguel Alexandra MD T: 1:47 PM CC: Chelsi?John? PCP: Sacha Brasher Referring: Sacha Brasher This document was completed utilizing speech recognition software. Grammatical errors, random word insertions, pronoun errors, and incomplete sentences are an occasional consequence of this system due to software limitations, ambient noise, and hardware issues. Any formal questions or concerns about the content, text or information contained within the body of this dictation should be directly addressed to the provider for clarification.
== END 2025-02-26 23:59 | disposition home or self-care (01) ==
LOC: SCTC 09:17
PROVIDERS: PCP Internal Medicine; Referring Provider Internal Medicine; Visit Provider Internal Medicine Hematology & Oncology
DX: C7A.8 Other malignant neuroendocrine tumors (principal); E53.8 Deficiency of other specified B group vitamins; D69.6 Thrombocytopenia, unspecified; I82.452 Acute embolism and thrombosis of left peroneal vein; R97.8 Other abnormal tumor markers
CPT/HCPCS: 96372; 99212; J1932; J3420; G0463

== ENCOUNTER 2025-03-22 08:55 | Outpatient (RCR) | payer MEDICARE, BC, SELFPAY | END 2025-03-28 23:59 | disposition home or self-care (01) | LOC: SCTC 08:55 | PROVIDERS: PCP Internal Medicine; Referring Provider Internal Medicine; Visit Provider Internal Medicine Hematology & Oncology | DX: C7A.8 Other malignant neuroendocrine tumors (principal); D69.6 Thrombocytopenia, unspecified; I82.451 Acute embolism and thrombosis of right peroneal vein; Z79.01 Long term (current) use of anticoagulants; E53.8 Deficiency of other specified B group vitamins | CPT/HCPCS: 96372; J1932; J3420 ==

== ENCOUNTER → 2025-03-23 | Outpatient (CLI) | payer MEDICARE, BC, SELFPAY ==
--- NOTE | 2025-03-23 08:00 | XR_ITS ---
EXAMINATION: MRI abdomen with intravenous contrast TECHNIQUE: Multiple axial sagittal coronal MR abdomen Tomes post intravenous administration 6 cc gadolinium INDICATIONS: Carcinoid tumors of the liver, restaging FINDINGS: Multiple hepatic lesions again depicted Several lesions are larger in size Anterior left lobe liver lesion 35 mm compared to 15 mm on 01/23/2024 New posterior right lobe liver lesion 34 mm New lateral right lobe liver lesion 21 mm New lower right lobe liver lesion 29 mm New posterior right lobe liver lesion 18 mm Inferior posterior right lobe liver lesion 8.6 cm compared with 5.9 cm Significant splenomegaly Splenic lesion 6.7 cm compared to 5.1 cm Mass in the tail of pancreas, 32 mm No dilated pancreatic duct No hydronephrosis Aorta normal size Mild ascites IMPRESSION: Compared with MRI abdomen 01/23/2024: Marked progression of hepatic lesions Enlarging splenic lesion Mass tail the pancreas 32 mm
--- NOTE | 2025-03-23 08:30 | XR_ITS ---
EXAMINATION: MRI pelvis with intravenous contrast TECHNIQUE: Axial sagittal coronal MRI pelvis images post intravenous administration 6 cc gadolinium Date and time: March 23, 2025, 0845 hours INDICATIONS: Diagnosis multiple liver lesions, diagnosis carcinoid lesions FINDINGS: No common iliac external iliac internal iliac or common femoral lymphadenopathy Homogeneous marrow signal No pelvic mass No abnormal osseous enhancement Contracted urinary bladder Prostate is poorly visualized IMPRESSION: No abnormal enhancing pelvic lesion
== END | disposition home or self-care (01) ==
PROVIDERS: PCP Internal Medicine; Referring Provider Internal Medicine Hematology & Oncology; Visit Provider Internal Medicine Hematology & Oncology
DX: K86.89 Other specified diseases of pancreas (principal); K76.9 Liver disease, unspecified; D73.89 Other diseases of spleen; C7B.02 Secondary carcinoid tumors of liver
CPT/HCPCS: 72196; 74182; A9577

== ENCOUNTER 2025-04-26 09:01 | Outpatient (RCR) | payer MEDICARE, BC, SELFPAY ==
--- NOTE | 2025-06-07 01:28 | CTCFLWUP_ITS ---
Patient: BUD HOLDEN : 1960 Page 2 of 3 FOLLOW UP NOTE DATE OF SERVICE: 04/14/2025 NAME: BUD HOLDEN ACCOUNT: [id number] : 1960 AGE: 65 INTERVAL HISTORY: Patient is doing well . ONCOLOGY HISTORY:?[facility] Hx? 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 Holden is a 65-year-old male with the following oncology history. 02/06/2023: Mr. Holden had a renal and bladder ultrasound to evaluate the cause for renal insufficiency. 02/11/2023: CT scan of the abdomen without IV contrast 03/15/2023: MRI of the abdomen with and without contrast? 04/16/2023: CT-guided biopsy of the right lobe liver lesion? 05/27/2023: 24-hour urine 5-HIAA level 07/25/2023: PET/CT scan at [facility] 07/04/2023: EGD done Mr. Holden also had colonoscopy done which did not reveal any significant abnormalities. 09/05/2023: Dotatate PET CT scan at [facility]? 11/27/2023: Dr. Samantha Odonnell of [facility] gastrointestinal medical oncology recommended Mr. Holden to be started on lanreotide in view of the bulky disease. 12/26/2023: Mr. Holden received first dose of lanreotide 120 mg subcu. 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 Tobacco?Use:?Denies ETOH?Use:?Denies Drug?Note:?Denies Social?History?Note:?Lives?with? MEDICATIONS: 1. Eliquis - 5 mg 1 tab Twice a Day 2. labetalol - 100 mg 1 tab Twice a Day 3. losartan - 50 mg 1 tab Daily 4. losartan - 100 mg 1 tab Twice a Day 5. niCARdipine - 20 mg 1 Capsule Twice a Day 6. sodium citrate - 4 gram /100 mL (4 %) 4 gm weekly if no bm for 7 days?[facility] Meds? Medications Last Reconciled by Karina Ivan MD on 04/14/2025 ALLERGIES: Penicillins; naproxen REVIEW OF SYSTEMS: A complete 14-point review of systems was performed and is negative except as noted in interval history. PHYSICAL EXAMINATION:?[facility] PE? VITAL SIGNS: Temperature?99.4, B/P?177/108, Oxygen?Saturation?97% Weight?166.4?lbs (Change?since?03/22/25:?0?lbs) PAIN: 0 - No pain ECOG Performance Status: 0 - Asymptomatic and fully active EYE: Conjunctivae is white MOUTH: Oral cavity is dry. CHEST:. Chest moves normal with respiration on room air CARDIAC: No visible neck veins ABDOMEN: No abdominal distention noted EXTREMITIES: No edema or swellings noted LABORATORY DATA: I have personally reviewed and interpreted each of the patient?s relevant lab tests, abnormal findings are below: Date 06/11/24 11/12/24 ??WHITE?BLOOD?COUNT?(Thou/mm3) 8.5 8.5 ??RED?BLOOD?COUNT?(Miln/mm3) 3.48?L 3.62?L ??HEMOGLOBIN?(gm/dl) 10.1?L 10.7?L ??HEMATOCRIT?(%) 29.5?L 30.3?L ??PLATELET?COUNT?(Thou/mm3) 53?L 93?L ??NEUTROPHILS?%,?AUTO?(%) 56 51 ??LYMPH?%,?AUTO?(%) 27 31 ??NEUTROPHILS,?AUTO?(Thou/mm3) 4.8 4.4 ??GLUCOSE,RANDOM?(mg/dL) 108?H 120?H ??BLOOD?UREA?NITROGEN?(mg/dL) 16 29?H ??CREATININE?(mg/dL) 1.40?H 1.80?H ??SODIUM?(mmol/L) 139 140 ??POTASSIUM?(mmol/L) 3.5 4.2 ??CHLORIDE?(mmol/L) 104 112?H ??CrCl?(CandG)?(ml/min) 58.99 42.89 ??AST/SGOT?(Unit/L) 11 20 ??ALT/SGPT?(Unit/L) <?7?L 9?L ??ALKALINE?PHOSPHATASE?(Unit/L) 69 73 ??BILIRUBIN,?TOTAL?(mg/dL) 0.9 0.5 ??PROTEIN?TOTAL?(gm/dl) 6.2 7.4 ??ALBUMIN,?SERUM?(gm/dl) 3.9 4.4 ??GLOBULIN?(gm/dl) 2.3 3.0 ??ALBUMIN/GLOBULIN?RATIO 1.7 1.5 ??CALCIUM,?SERUM?(mg/dL) 8.7 9.2 ??CALCIUM?SERUM?(CORRECTED)?(mg/dL) 8.8 9.2 ASSESSMENT/PLAN:?Ilana Alexandra Assessment/Plan? Varun Coelho, a patient with a history of neuroendocrine tumor, presents with low platelet count and elevated chromogranin A levels, requiring management for an upcoming surgical procedure. 1. Well-differentiated neuroendocrine tumor, grade 1?2 involving liver parenchyma with possible pancreatic primary. Assessment and Plan: Bud is a male patient with a history of neuroendocrine tumor, presenting for follow-up of cancer treatment and management of associated symptoms including blood pressure fluctuations and low platelet count. Multiple liver tumors (03/15/2023) 5 HIAA?urine have increased l The patient had first dose of lanreotide 120 mg subcu on 12/26/2023. For about 3 days he had significant abdominal pain as well as diarrhea. Dose will be reduced to 75 . he did not receive any treatment until 05/2024 and thus about 6 month break A recent MRI of the abdomen done on 01/23/2024 showed progression of the liver lesions when it was compared to previous MRI done on March 15, 2023. 5 HIAA levels normal 09/24/2023 was 4.6 (less than 6.0) PET CT scan with the dotatate on 07/01/2024 is showing progression or more brighter spots than earlier in August Of note patient has not received any treatment for about 6 months and likely reason that his cancer has progressed Dose was increased to 100 Serum chromogranin levels reviewed and have stabilized. . Continue current octreotide dose Patient follows with oncology at [facility] and I reviewed notes from October 2024 and recommendation is plan for surgery at resection. Advised patient to discuss with his oncologist. Patient do not want to change any therapy until it is recommended by [facility] Patient still has symptoms from the disease and his chromogranin level is above 3000 Patient will likely benefit from short course chemotherapy cisplatin etoposide for 4 cycles followed by octreotide I will continue octreotide at this time Thrombocytopenia Assessment: Patient's platelet count has been consistently low, Platelets are still above 50 and below 100 Plan-follow with hematology at [facility] and transfuse for any procedure Patient's D-dimer levels are elevated, indicating a possible blood clot. ` 11/12/2024 ultrasound of the leg positive for thrombus in the right mid and distal superficial femoral vein and right popliteal vein and right peroneal vein right posterior tibial vein. Patient's new ultrasound in January 2025 also shows a new blood clot in the peroneal vessel - Continue current anticoagulation with Eliquis 5 mg BID. Hold if platelets are below 50 - Educate patient on thrombosis prevention during travel: - Walk every 2 hours during long-distance travel Vitamin B12 Deficiency Assessment: Patient's vitamin B12 levels have improved since starting supplementation, with levels increasing from the fifties to the seventies. However, levels remain suboptimal. Plan: - Continue monthly vitamin B12 injections - Add daily sublingual vitamin B12 supplements - Monitor B12 levels and adjust treatment as needed ORDERS: Order # Description [id number] CBC + Comprehensive Metabolic Panel [id number] Lab Appointment [id number] CBC + Comprehensive Metabolic Panel [id number] Lab Appointment [id number] CBC + Comprehensive Metabolic Panel [id number] Lab Appointment RETURN TO CLINIC: I reviewed the diagnosis, prognosis, and recommended treatment/procedure options with the patient (and/or their legal sales representative publications), including the potential benefits, risks, side effects and alternative therapies. We also discussed the option of no treatment and the possibility of clinical trial participation, if applicable. All questions were addressed, and they demonstrated understanding. They provided informed consent to proceed with the proposed plan of care. BILLING AND COMPLIANCE: I reviewed external records from providers outside my specialty as summarized above. I spent a total of 50 minutes on this patient?s care on the day of their visit excluding time spent related to any billed procedures. This time includes time spent with the patient as well as time spent documenting in the medical record, reviewing patients records and tests, obtaining history, placing orders, communicating with other healthcare professionals, counseling the patient, family or caregiver, and/or care coordination for the diagnoses above. Electronically Signed by: Miguel Alexandra MD T: 1:25 AM CC: Chelsi?John? PCP: Sacha Brasher Referring: Miguel Alexandra This document was completed utilizing speech recognition software. Grammatical errors, random word insertions, pronoun errors, and incomplete sentences are an occasional consequence of this system due to software limitations, ambient noise, and hardware issues. Any formal questions or concerns about the content, text or information contained within the body of this dictation should be directly addressed to the provider for clarification.
== END 2025-04-28 23:59 | disposition home or self-care (01) ==
LOC: SCTC 09:01
PROVIDERS: PCP Internal Medicine; Referring Provider Internal Medicine; Visit Provider Internal Medicine Hematology & Oncology
DX: C7A.8 Other malignant neuroendocrine tumors (principal); D69.6 Thrombocytopenia, unspecified; I82.411 Acute embolism and thrombosis of right femoral vein; I82.431 Acute embolism and thrombosis of right popliteal vein; I82.451 Acute embolism and thrombosis of right peroneal vein; I82.441 Acute embolism and thrombosis of right tibial vein; E53.8 Deficiency of other specified B group vitamins
CPT/HCPCS: 96372; 99212; J1932; J3420; G0463